=== PATIENT | female | born 1965 | race African-American/Black ===

== ENCOUNTER 2018-01-18 10:34 | Inpatient (IN) | payer OTHER ==
[2018-01-17 08:24] VITALS: BMI 37.4
[2018-01-18] MEDS ORDERED: MIDAZOLAM HCL 2 MG/2 ML SINGLE DOSE VIAL ONE (12:53)
[2018-01-18] MEDS ORDERED: ONDANSETRON 4 MG/2 ML VIAL ONE ×3 (13:01→17:02)
[2018-01-18] MEDS ORDERED: DEXAMETHASONE SOD PHOSPHATE 4 MG/1 ML VIAL ONE ×2 (13:01→15:16)
[2018-01-18] MEDS ORDERED: LIDOCAINE HCL/PF 2% SDV 5ML VIAL ONE (13:01)
[2018-01-18] MEDS ORDERED: fentaNYL CITRATE 250 MCG/5 ML VIAL ONE (13:03)
[2018-01-18] MEDS ORDERED: PROPOFOL 20 ML ONE ×2 (13:04→13:10)
[2018-01-18] MEDS ORDERED: BUPIVACAINE HCL/PF 0.5% (5MG/ML) 10 ML VIAL ONE (13:05)
[2018-01-18] MEDS ORDERED: ROCURONIUM BROMIDE 50 MG/5 ML VIAL ONE ×2 (13:05)
[2018-01-18] MEDS ORDERED: ceFAZolin SODIUM 1 GM VIAL ONE (13:06)
[2018-01-18] MEDS ORDERED: ceFAZolin SODIUM 1 GM VIAL IVPB ONE (13:08)
[2018-01-18] MEDS ORDERED: BUPIVACAINE HCL/PF (5 MG/ML) 30 ML VIAL IJ ONE (13:19)
--- NOTE | 2018-01-18 13:19 | HP ---
DATE OF ADMISSION: 01/18/2018 CHIEF COMPLAINT: Morbid obesity. HISTORY OF PRESENT ILLNESS: Patient is a 52-year-old woman with a history of morbid obesity for many years despite multiple attempts at dietary weight loss. She received nutrition, psychological, pulmonary, and medical clearance prior to being admitted for elective sleeve gastrectomy surgery. PAST MEDICAL HISTORY: Significant for diabetes, hypertension, asthma, and GERD. PAST SURGICAL HISTORY: Significant for right lung resection. MEDICATIONS: Include metformin, Lantus, and albuterol inhalers. ALLERGIES: The patient has no known allergies. REVIEW OF SYMPTOMS: General: Within normal limits. Cardiovascular: Within normal limits. Respiratory: No dyspnea noted. Musculoskeletal: Within normal limits. Neurologic: Within normal limits. PHYSICAL EXAMINATION: General: A 52-year-old woman, morbidly obese, awake and alert, in no acute distress. HEENT: No masses palpated. Lungs: Clear breath sounds bilaterally. Heart: Regular sinus rhythm. Abdomen: Positive for obesity. Soft and nontender on palpation. Extremities: Within normal limits. IMPRESSION: Morbid obesity. PLAN: Take the patient to the OR for an elective laparoscopic vertical sleeve gastrectomy. Luana [id number]
--- NOTE | 2018-01-18 15:52 | OP ---
Operative Note - Note: Operative Date: 01/18/18 Pre-Operative Diagnosis: Morbid Obesity. Diabetes Mellitus. Hypertension. Asthma. Elevated LFT Operation: Laparoscopic Vertical Sleeve Gastrectomy. Wedge Biopsy of Left lobe of liver. Diagnostic Laparoscopy Findings: Greater curve sleeve gastrectomy performed with #[address] enlarged left lobe of liver wedge biopsy performed Post-Operative Diagnosis: Same as Pre-op (Hepatomegaly) Surgeon: Cabrera Cabrera Electronics Technician: Lorene Metzger Anesthesia: General Specimens Removed: Greater curve of stomach. Wedge biopsy of left lobe of liver Estimated Blood Loss (mls): 50 Operative Report Dictated: Yes
[2018-01-18] MEDS ORDERED: ACETAMINOPHEN 325 MG TABLET (FP) PO PRN (16:04)
[2018-01-18] MEDS ORDERED: oxyCODONE HCL 5 MG TABLET PO PRN (16:04)
[2018-01-18] MEDS ORDERED: METOCLOPRAMIDE HCL INJECTION 10 MG/2 ML VIAL ONE (16:21)
--- NOTE | 2018-01-18 16:25 | SURG ---
Surgery Cat Scanner Operator Note Cat Scanner Operator: Lorene Metzger PA-C Date of Service: 01/18/18 Diagnosis: Morbid Obesity. Diabetes Mellitus. Hypertension. Asthma. Elevated LFT Procedure: Laparoscopic Vertical Sleeve Gastrectomy. Wedge Biopsy of Left lobe of liver. Diagnostic Laparoscopy I was present for the entirety of the operative procedure. For further detail, please refer to operative report. Visit type - Case Type Case Type: Scheduled - Emergency Emergency Visit: No - New patient This patient is new to me today: Yes Date on this admission: 01/18/18
[2018-01-18] MEDS: METOCLOPRAMIDE HCL INJECTION 10 MG/2 ML VIAL IVPUSH SCH ×2 (16:35→21:32)
[2018-01-18] MEDS ORDERED: METOPROLOL TARTRATE 5 MG/5 ML VIAL ONE (16:44)
[2018-01-18] MEDS: SODIUM CHLORIDE 1,000 ML IV SCH (17:00)
[2018-01-18] MEDS: ONDANSETRON 4 MG/2 ML VIAL IVPUSH PRN (17:00)
[2018-01-18 17:01] LABS: HEMATOCRIT 39.8 % (32.4-45.2); HEMOGLOBIN 13.6 GM/dL (10.7-15.3); MCH 30.4 pg (25.7-33.7); MCHC 34.2 g/dl (32.0-36.0); MEAN CELL VOLUME 88.9 fl (80-96); MEAN PLT VOLUME 8.3 fl (7.5-11.1); PLATELET COUNT 333 K/MM3 (134-434); RBC 4.48 M/mm3 (3.60-5.2); RDW 13.3 % (11.6-15.6); WHITE BLOOD COUNT 16.7 K/mm3 (4.0-10.0)
--- NOTE | 2018-01-18 17:25 | OP ---
DATE OF OPERATION: 01/18/2018 PREOPERATIVE DIAGNOSIS: 1. Morbid obesity. 2. Diabetes mellitus. 3. Hypertension. 4. Asthma. 5. Elevated liver function tests. POSTOPERATIVE DIAGNOSIS: 1. Morbid obesity. 2. Diabetes mellitus. 3. Hypertension. 4. Asthma. 5. Elevated liver function tests. 6. Hepatomegaly. PROCEDURE PERFORMED: 1. Laparoscopic vertical sleeve gastrectomy. 2. Wedge biopsy of the left lobe of the liver. 3. Diagnostic laparoscopy. OPERATING SURGEON: Cabrera Cabrera M.D. RECREATIONAL RESORT MANAGER SURGEON: Fatoumata Duncan ANESTHESIA: General. OPERATIVE PROCEDURE: The patient was brought into the operating room, placed on the OR table in the supine position. All precautions were taken initially including padding for the back and the feet, and Venodyne boots were placed on both lower extremities. At that point, the abdomen was prepped and draped in the usual manner. A Veress needle was placed in the left upper quadrant, and a pneumoperitoneum was established. A number 12 bladeless trocar was placed in the left upper quadrant through the trocar, laparoscopic camera was placed. Under direct vision, a number 15 bladeless trocar was placed in the midline in the supraumbilical position, and this was followed by a number 5 bladeless trocar in the right upper quadrant and number 5 bladeless trocar below the left costal margin. At this point a Faustino liver retractor was then placed in the epigastrium to retract the left lobe of the liver. The left lobe was noted to be extremely enlarged and was able to extend inferiorly well past the stomach. Because of the size of the liver and also because of elevated liver function test preoperatively, it was decided that a wedge liver biopsy would be performed. The Ligasure was used to dissect a triangular shaped portion of the liver off the inferior edge of the liver. When this was completed, it was sent off the field as specimen to pathology. The parenchyma had very minor oozing, and that was easily controlled with the Ligasure also. At this point, the patient was then placed in 20-degree reverse Trendelenburg position by anesthesia. The pylorus was noted on the distal stomach and 6 cm were measured proximally from there on the stomach. Here, the operating surgeon lifted the greater curvature of the stomach toward the anterior abdominal wall, as the city carrier assistant surgeon retracted the gastrocolic ligament inferiorly. The Ligasure device now used to dissect the gastrocolic ligament off the stomach until the lesser sac was entered. Care was taken during this part to be certain that the lesser sac was entered without any injury to underlying structures. These structures included the transverse colon and also the pancreas. The pancreas was in full view throughout; the transverse colon however was difficult to see but care was taken. Once the lesser sac was entered, the dissection continued along the greater curve, as the short gastric vessels were dissected off the stomach wall. This continued until the final short gastric vessel between the superior pole of the spleen and the proximal fundus was divided. Attention was now directed back to the distal part of the stomach by the antrum where the dissection began. Here, there was some omentum on the greater curve of the stomach, and it was carefully dissected off the stomach with the Ligasure and dissected. At this point, anesthesia advanced number 36 bougie along the lesser curve all the way to the antrum as it swept towards the pylorus. As the operating surgeon held the bougie along the lesser curve, a series of sadiq were performed with the first two being black load sadiq 6 cm in length along the bougie. This was followed by a series of purple load sadiq also 6 cm in length along the bougie, until the final sadiq were fired in left upper quadrant. The greater curve was now completely detached from the lesser curve. It should be noted that prior to firing each staple, both the anterior and posterior castañeda were checked and were intact, and then the area of the esophagogastric junction approximately remained on the anterior and posterior surfaces. At this point, saline was placed around the staple line, as anesthesia injected air into the bougie. The bougie blew up and the greater curvature distended, but no signs of any air leaks were noted, and no obstruction. At this point, attention was directed to the staple line, which appeared to be solid. There was one area of minor oozing in the upper portion of the staple line by esophagogastric junction and this was controlled with a [id number] with the Endo Stitch. Careful evaluation on the distal stomach where the staple line began showed that again the structure behind the stomach the transverse colon and the pancreas were completely away from the dissected areas. At this point, the resected greater curve was moved from the number 15 trocar site and handed off the field as specimen to pathology. Under direct vision, the number 15 trocar site was closed with endo closure device to prevent internal hernia and prevent bleeding. Under direct vision, all trocars were removed, and the pneumoperitoneum was released. All trocar sites had received 0.25% Marcaine, were closed with 4-0 Biosyn subcuticular fashion. Dressings were applied, patient awoken from anesthesia and transferred out of the operation room to the recovery room in stable condition. Anesthesia in the case was general, surgeon Dr. Cabrera, the city carrier assistant was Lorene Metzger physician city carrier assistant, expected blood loss was 50 mL, patient transferred to the recovery room in stable condition. Luana [id number]
[2018-01-18] MEDS ORDERED: METOPROLOL TARTRATE 5 MG/5 ML VIAL IVPUSH ONE (17:34)
[2018-01-18] MEDS ORDERED: PROMETHAZINE HCL 25 MG/1 ML VIAL ONE (17:34)
[2018-01-18] MEDS ORDERED: PROMETHAZINE HCL 25 MG/1 ML VIAL IVPUSH ONE (17:35)
[2018-01-18] MEDS ORDERED: hydrALAZINE HCL 20 MG/ML VIAL IVPUSH ONE (17:45)
[2018-01-18 17:53] LABS: ALBUMIN 3.8 g/dl (3.4-5.0); ANION GAP 9 (8-16); BLOOD UREA NITROGEN 17 mg/dL (7-18); CALCIUM 8.8 mg/dL (8.5-10.1); CHLORIDE 104 mmol/L (98-107); CO2 26 mmol/L (21-32); GLUCOSE,RANDOM 283 mg/dL (74-106); POTASSIUM 4.8 mmol/L (3.5-5.1); SGOT/AST 102 U/L (15-37); SGPT/ALT 103 U/L (12-78); SODIUM 139 mmol/L (136-145)
[2018-01-18 17:55] LABS: ALK PHOS 115 U/L (45-117); BILIRUBIN,TOTAL 0.3 mg/dL (0.2-1.0); TOT PROT 6.9 g/dl (6.4-8.2)
--- NOTE | 2018-01-18 19:06 | CONSULT ---
Consultation: REQUESTING PROVIDER: Rick CONSULT REQUEST: We have been asked to medically evaluate this patient for (ICU monitoring). HISTORY OF PRESENT ILLNESS: 52 yo female with PMH DM, morbid obesity, HTN, Asthma, and GERD, admitted to the ICU s/p Sleeve gastrectomy with EGD and liver biopsy, post-op day 0. Currently complaining of nausea, with one episode of vomiting. Denies: headache , fevers, chills, cough, SOB REVIEW OF SYSTEMS: CONSTITUTIONAL: Absent: fever, chills, diaphoresis, generalized weakness, malaise, loss of appetite, weight change HEENT: Absent: rhinorrhea, nasal congestion, throat pain, throat swelling, difficulty swallowing, mouth swelling, ear pain, eye pain, visual changes CARDIOVASCULAR: Absent: chest pain, syncope, palpitations, irregular heart rate, lightheadedness , peripheral edema RESPIRATORY: Absent: cough, shortness of breath, dyspnea with exertion, orthopnea, wheezing, stridor, hemoptysis GASTROINTESTINAL: abdominal pain, nausea, vomiting, Absent: abdominal distension, diarrhea, constipation, melena, hematochezia GENITOURINARY: Absent: dysuria, frequency, urgency, hesitancy, hematuria, flank pain, genital pain MUSCULOSKELETAL: Absent: myalgia, arthralgia, joint swelling, back pain, neck pain SKIN: Absent: rash, itching, pallor HEMATOLOGIC/IMMUNOLOGIC: Absent: easy bleeding, easy bruising, lymphadenopathy, frequent infections ENDOCRINE: Absent: unexplained weight gain, unexplained weight loss, heat intolerance, cold intolerance NEUROLOGIC: Absent: headache, focal weakness or paresthesias, dizziness, unsteady gait, seizure, mental status changes, bladder or bowel incontinence PSYCHIATRIC: Absent: anxiety, depression, suicidal or homicidal ideation, hallucinations. PHYSICAL EXAMINATION Vital Signs - 24 hr 01/18/18 01/18/18 01/18/18 11:16 11:17 16:00 Temperature 98.0 F Pulse Rate 88 83 Respiratory 20 10 L Rate Blood Pressure 143/87 168/108 O2 Sat by Pulse 98 94 L Oximetry (%) 01/18/18 01/18/18 01/18/18 16:15 16:30 16:45 Temperature Pulse Rate 85 84 79 Respiratory 22 14 11 L Rate Blood Pressure 171/102 175/109 185/116 O2 Sat by Pulse 99 100 99 Oximetry (%) 01/18/18 01/18/1801/18/18 17:00 17:15 17:30 Temperature Pulse Rate 78 77 84 Respiratory 15 17 17 Rate Blood Pressure 175/117 164/84 161/115 O2 Sat by Pulse 100 100 99 Oximetry (%) 01/18/18 01/18/18 01/18/18 17:45 18:00 18:21 Temperature 98.0 F 97.7 F Pulse Rate 88 96 H 90 Respiratory 20 18 Rate Blood Pressure 161/101 159/96 160/91 O2 Sat by Pulse 99 100 Oximetry (%) 01/18/18 18:24 Temperature Pulse Rate Respiratory Rate Blood Pressure O2 Sat by Pulse 98 Oximetry (%) GENERAL: Awake, alert, and fully oriented, in no acute distress. HEAD: Normal with no signs of trauma. EYES: Pupils equal, round and reactive to light, extraocular movements intact, sclera anicteric, conjunctiva clear. No lid lag. EARS, NOSE, THROAT: Ears normal, nares patent, oropharynx clear without exudates. Moist mucous membranes. NECK: supple without lymphadenopathy, JVD, or masses. LUNGS: Breath sounds equal but decreased, clear to auscultation bilaterally. No wheezes, and no crackles. No accessory muscle use. HEART: Regular rate and rhythm, normal S1 and S2 without murmur, rub or gallop. ABDOMEN: Morbidly obese, Soft, mildly tender to palpation, not distended, hypoactive bowel sounds, no guarding, no rebound, no masses. MUSCULOSKELETAL: Normal range of motion at all joints. No bony deformities or tenderness. No CVA tenderness. UPPER EXTREMITIES: 2+ pulses, warm, well-perfused. No cyanosis. No clubbing. No peripheral edema. LOWER EXTREMITIES: 2+ pulses, warm, well-perfused. No calf tenderness. No peripheral edema. NEUROLOGICAL: Cranial nerves II-XII grossly intact. Normal speech. Gait not observed PSYCHIATRIC: Cooperative. Good eye contact. Appropriate mood and affect. SKIN: Warm, dry, normal turgor, no rashes or lesions noted. Laboratory Results - last 24 hr 01/18/18 01/18/18 01/18/18 11:13 11:22 16:30 WBC 16.7 H RBC 4.48 Hgb 13.6 Hct 39.8 MCV 88.9 MCH 30.4 MCHC 34.2 RDW 13.3 Plt Count 333 MPV 8.3 Sodium Potassium Chloride Carbon Dioxide Anion Gap BUN Creatinine Creat Clearance w eGFR POC Glucometer 161 Random Glucose Calcium Total Bilirubin AST ALT Alkaline Phosphatase Total Protein Albumin Blood Type O POSITIVE 01/18/18 16:30 WBC RBC Hgb Hct MCV MCH MCHC RDW Plt Count MPV Sodium 139 Potassium 4.8 Chloride 104 Carbon Dioxide 26 Anion Gap 9 BUN 17 Creatinine 1.0 Creat Clearance w eGFR 58.22 POC Glucometer Random Glucose 283 H Calcium 8.8 Total Bilirubin 0.3 AST 102 H ALT 103 H Alkaline Phosphatase 115 Total Protein 6.9 Albumin 3.8 Blood Type Active Medications Generic Name Dose Route Start Last Admin Trade Name Freq PRN Reason Stop Dose Admin Acetaminophen 325 mg 01/18/18 16:04 Tylenol - PO 01/21/18 16:03 Q4H PRN PAIN 1-5 Enoxaparin Sodium 40 mg 01/18/18 22:00 Lovenox - SQ BID MONICA Famotidine/Sodium Chloride 20 mg in 50 mls @ 100 mls/hr 01/18/18 22:00 Pepcid 20 Mg Premixed Ivpb - IVPB BID MONICA Sodium Chloride 1,000 mls @ 150 mls/hr 01/18/18 15:45 01/18/18 17:00 Normal Saline - IV 150 mls ASDIR MONICA Administration Metoclopramide HCl 10 mg 01/18/18 15:45 01/18/18 16:35 Reglan Injection - IVPUSH 10 mg Q6H MONICA Administration Ondansetron HCl 4 mg 01/18/18 15:39 01/18/18 17:00 Zofran Injection IVPUSH 4 mg Q4H PRN Administration NAUSEA AND/OR VOMITING Oxycodone HCl 5 mg 01/18/18 16:04 Roxicodone - PO Q4H PRN PAIN 1-5 ASSESSMENT/PLAN: 52 yo female admitted to the ICU for monitoring s/p sleeve gastrectomy with EGD and liver biopsy. post-op day 0 Neuro -No known neuro issues at this time Cardio -HTN Lopressor 5mg and Hydralazine 10mg given in PACU for htn will restart home med Losartan-HCTZ 100-25 PO in AM Respiratory -No known respiratory issues -CXR in AM -Incentive spirometry to prevent post op atelectasis/pneumonia GI -s/p sleeve gastrectomy and liver biopsy NPO Zofran and Reglan for nausea PRN Acute transaminitis most likely due to Liver biopsy, will follow CMP -GERD Famotidine 20 mg IVPB BID Renal -No known renal issues at this time Follow BMP Endocrine -IDDM BGM Insulin sliding scale for glycemic control between 140-180 will adjust as necessary Post-op -Pain control Oxycodone 5 mg PO Q4 PRN Tylenol 325 mg PO Q4 PRN -Incentive spirometry -no mo -PT for early ambulation DVT Prophylaxis -Lovenox 40 SQ BID -SCDs FEN -Fluids: NS @ 150 cc/hr -Electrolytes: no electrolyte abnormalities, CMP in AM -Nutrition: NPO for now, will advance as per surgery Disposition Monitor in the ICU Problem List - Problems (1) Morbid obesity Code(s): E66.01 - MORBID (SEVERE) OBESITY DUE TO EXCESS CALORIES (2) S/P laparoscopic sleeve gastrectomy Code(s): Z98.84 - BARIATRIC SURGERY STATUS (3) HTN (hypertension) Code(s): I10 - ESSENTIAL (PRIMARY) HYPERTENSION (4) IDDM (insulin dependent diabetes mellitus) Code(s): E11.9 - TYPE 2 DIABETES MELLITUS WITHOUT COMPLICATIONS; Z79.4 - PORTABLE SAWYER (CURRENT) USE OF INSULIN (5) GERD (gastroesophageal reflux disease) Code(s): K21.9 - GASTRO-ESOPHAGEAL REFLUX DISEASE WITHOUT ESOPHAGITIS Visit type - Emergency Visit Emergency Visit: No - New Patient This patient is new to me today: Yes Date on this admission: 01/18/18 - Critical Care Critical Care patient: Yes Total Critical Care Time (in minutes): 45 Critical Care Statement: The care of this patient involved high complexity decision making to prevent further life threatening deterioration of the patient 's condition and/or to evaluate & treat vital organ system(s) failure or risk of failure.
[2018-01-18] MEDS: FAMOTIDINE 20 MG/50 ML IVPB 20 MG/50 ML MG IVPB SCH (21:34)
[2018-01-18] MEDS: ENOXAPARIN NA (PORCINE) 40 MG/0.4 ML DISP.SYRIN SQ SCH (21:34)
[2018-01-18] MEDS: INSULIN SLIDING SCALE (NOVOLOG) 1 VIAL SQ SCH (21:36)
[2018-01-19] MEDS: METOCLOPRAMIDE HCL INJECTION 10 MG/2 ML VIAL IVPUSH SCH ×4 (04:30→21:58)
[2018-01-19 06:10] LABS: HEMATOCRIT 35.2 % (32.4-45.2); HEMOGLOBIN 12.4 GM/dL (10.7-15.3); MCH 30.9 pg (25.7-33.7); MCHC 35.3 g/dl (32.0-36.0); MEAN CELL VOLUME 87.5 fl (80-96); PLATELET COUNT 271 K/MM3 (134-434); RBC 4.03 M/mm3 (3.60-5.2); WHITE BLOOD COUNT 13.2 K/mm3 (4.0-10.0)
[2018-01-19] MEDS: INSULIN SLIDING SCALE (NOVOLOG) 1 VIAL SQ SCH ×4 (06:15→22:26)
[2018-01-19 06:26] LABS: ALBUMIN 3.6 g/dl (3.4-5.0); ALK PHOS 97 U/L (45-117); ANION GAP 5 (8-16); BILIRUBIN,TOTAL 0.4 mg/dL (0.2-1.0); BLOOD UREA NITROGEN 13 mg/dL (7-18); CALCIUM 8.7 mg/dL (8.5-10.1); CHLORIDE 106 mmol/L (98-107); CO2 27 mmol/L (21-32); CREATININE 0.9 mg/dL (0.55-1.02); GLUCOSE,RANDOM 182 mg/dL (74-106); MAGNESIUM 1.9 mg/dL (1.8-2.4); POTASSIUM 3.9 mmol/L (3.5-5.1); SGOT/AST 106 U/L (15-37); SGPT/ALT 105 U/L (12-78); SODIUM 138 mmol/L (136-145); TOT PROT 6.8 g/dl (6.4-8.2)
[2018-01-19] MEDS: ONDANSETRON 4 MG/2 ML VIAL IVPUSH PRN ×2 (06:58→15:42)
[2018-01-19] MEDS ORDERED: PANTOPRAZOLE SODIUM 40 MG VIAL IVPUSH ONE (08:50)
--- NOTE | 2018-01-19 09:10 | PN ---
Progress Note (short form) - Note Progress Note: Post op day#1.S/P Laproscopic gastric sleeve placement under Ga uneventful.P 99, BP 156/89 and [id number]% on O2 2l NC.Patient stable.No any anesthesia related problem.Ptient Dc from the anesthesia care.
[2018-01-19] MEDS ORDERED: PANTOPRAZOLE SODIUM 40 MG VIAL IVPUSH SCH (10:00)
--- NOTE | 2018-01-19 10:18 | PN ---
Teaching Attending Note Name of Resident: Ayad Byrd ATTENDING PHYSICIAN STATEMENT I saw and evaluated the patient. I reviewed the resident's note and discussed the case with the resident. I agree with the resident's findings and plan as documented. SUBJECTIVE: Pt seen and examined in the ICU. Some epigastric discomfort and nausea. + flatus. No shortness of breath or chest pain. OBJECTIVE: Vital Signs Period Temp Pulse Resp BP Sys/[place] Pulse Ox Last 24 Hr 97.7 F-98.7 F 77-97 10-22 132-185/76-117 94-100 Intake & Output 01/16/18 01/17/18 01/18/18 01/19/18 23:59 23:59 23:59 23:59 Intake Total 2150 1500 Output Total 1350 1500 Balance 800 0 Weight 89.811 kg 89.403 kg Gen: NAD at rest Heart: RRR Lung: decreased breath sounds at the bases Abd: soft, dressings intact Ext: no edema CBC, BMP 01/19/18 05:30 01/19/18 05:30 Active Medications Acetaminophen (Tylenol -) 325 mg PO Q4H PRN PRN Reason: PAIN 1-5 Stop: 01/21/18 16:03 Enoxaparin Sodium (Lovenox -) 40 mg SQ BID [facility] Last Admin: 01/18/18 21:34 Dose: 40 mg HCTZ/Losartan Potassium (Hyzaar -) 2 tab PO DAILY [facility] Famotidine/Sodium Chloride (Pepcid 20 Mg Premixed Ivpb -) 20 mg in 50 mls @ 100 mls/hr IVPB BID [facility] Last Admin: 01/18/18 21:34 Dose: 100 mls/hr Sodium Chloride (Normal Saline -) 1,000 mls @ 150 mls/hr IV ASDIR [facility] Last Admin: 01/18/18 17:00 Dose: 150 mls Insulin Aspart (Novolog Vial Sliding Scale -) 1 vial SQ ACHS [facility]; Protocol Last Admin: 01/19/18 06:15 Dose: 2 units Metoclopramide HCl (Reglan Injection -) 10 mg IVPUSH Q6H [facility] Last Admin: 01/19/18 04:30 Dose: 10 mg Ondansetron HCl (Zofran Injection) 4 mg IVPUSH Q4H PRN PRN Reason: NAUSEA AND/OR VOMITING Last Admin: 01/19/18 06:58 Dose: 4 mg Oxycodone HCl (Roxicodone -) 5 mg PO Q4H PRN PRN Reason: PAIN 1-5 Last Admin: 01/19/18 05:36 Dose: 5 mg ASSESSMENT AND PLAN: Morbid Obesity s/p laparoscopic vertical sleeve gastrectomy/liver wedge biopsy HTN DM Asthma - f/u pathology - pain control - antiemetics - incentive spirometry - IVF - for upper GI series - DVT prophylaxis - can transfer to floor when ok with surgery
[2018-01-19] MEDS: ENOXAPARIN NA (PORCINE) 40 MG/0.4 ML DISP.SYRIN SQ SCH ×2 (10:21→21:59)
[2018-01-19] MEDS: FAMOTIDINE 20 MG/50 ML IVPB 20 MG/50 ML MG IVPB SCH ×2 (10:21→21:59)
[2018-01-19] MEDS: LOSARTAN 50MG/HCTZ 12.5MG 1 TAB (FP) PO SCH (10:31)
--- NOTE | 2018-01-19 10:34 | PN ---
Physical Exam: SUBJECTIVE: Patient seen and examined at bedside. C/o nausea but no vomiting and pain at incision site near sternum. No CP, SOB, fevers, chills. Passing flatus. OBJECTIVE: Vital Signs Temperature 98.7 F 01/19/18 06:00 Pulse Rate 95 H 01/19/18 06:00 Respiratory Rate 21 01/19/18 06:00 Blood Pressure 135/76 01/19/18 06:00 O2 Sat by Pulse Oximetry (%) 98 01/18/18 21:00 GENERAL: The patient is awake, alert, and fully oriented, in no acute distress. EYES: extraocular movements intact ENT: Ears normal, nares patent LUNGS: Breath sounds equal, clear to auscultation bilaterally HEART: Regular rate and rhythm, S1, S2 ABDOMEN: Soft, nondistended, normoactive bowel sounds, mild tenderness near incision sites. EXTREMITIES: warm, well-perfused NEUROLOGICAL: Cranial nerves II through XII grossly intact. Normal speech, gait not observed. PSYCH: Normal mood, normal affect. SKIN: Warm, dry, incisions from recent bariatric surgery on abd noted, clean, dry, no drainage at sites. Laboratory Results - last 24 hr 01/18/18 01/18/18 01/18/18 11:13 11:22 16:30 WBC 16.7 H RBC 4.48 Hgb 13.6 Hct 39.8 MCV 88.9 MCH 30.4 MCHC 34.2 RDW 13.3 Plt Count 333 MPV 8.3 Sodium Potassium Chloride Carbon Dioxide Anion Gap BUN Creatinine Creat Clearance w eGFR POC Glucometer 161 Random Glucose Calcium Phosphorus Magnesium Total Bilirubin AST ALT Alkaline Phosphatase Total Protein Albumin Blood Type O POSITIVE 01/18/18 01/19/18 01/19/18 16:30 05:30 05:30 WBC 13.2 H RBC 4.03 Hgb 12.4 Hct 35.2 MCV 87.5 MCH 30.9 MCHC 35.3 RDW 13.0 Plt Count 271 MPV 8.0 Sodium 139 138 Potassium 4.8 3.9 Chloride 104 106 Carbon Dioxide 26 27 Anion Gap 9 5 L BUN 17 13 Creatinine 1.0 0.9 Creat Clearance w eGFR 58.22 > 60 POC Glucometer Random Glucose 283 H 182 H Calcium 8.8 8.7 Phosphorus 4.0 Magnesium 1.9 Total Bilirubin 0.3 0.4 AST 102 H 106 H ALT 103 H 105 H Alkaline Phosphatase 115 97 D Total Protein 6.9 6.8 Albumin 3.8 3.6 Blood Type Active Medications Generic Name Dose Route Start Last Admin Trade Name Jasmyn PRN Reason Stop Dose Admin Acetaminophen 325 mg 01/18/18 16:04 Tylenol - PO 01/21/18 16:03 Q4H PRN PAIN 1-5 Enoxaparin Sodium 40 mg 01/18/18 22:00 01/18/18 21:34 Lovenox - SQ 40 mg BID MONICA Administration HCTZ/Losartan Potassium 2 tab 01/19/18 10:00 Hyzaar - PO DAILY [facility] Famotidine/Sodium Chloride 20 mg in 50 mls @ 100 mls/hr 01/18/18 22:00 21:34 Pepcid 20 Mg Premixed Ivpb - IVPB 100 mls/hr BID [facility] Administration Sodium Chloride 1,000 mls @ 150 mls/hr 01/18/18 15:45 01/18/18 17:00 Normal Saline - IV 150 mls ASDIR MONICA Administration Insulin Aspart 1 vial 01/18/18 22:00 01/19/18 06:15 Novolog Vial Sliding Scale - SQ 2 units ACHS [facility] Administration Protocol Metoclopramide HCl 10 mg 01/18/18 15:45 01/19/18 04:30 Reglan Injection - IVPUSH 10 mg Q6H MONICA Administration Ondansetron HCl 4 mg 01/18/18 15:39 01/19/18 06:58 Zofran Injection IVPUSH 4 mg Q4H PRN Administration NAUSEA AND/OR VOMITING Oxycodone HCl 5 mg 01/18/18 16:04 01/19/18 05:36 Roxicodone - PO 5 mg Q4H PRN Administration PAIN 1-5 ASSESSMENT/PLAN: 52 yo female with PMH DM, morbid obesity, HTN, Asthma, and GERD, admitted to the ICU s/p Sleeve gastrectomy. -Neuro -AAOx3 -GI -Morbid obesity -s/p sleeve gastrectomy. POD 1 -Pain control with oxy 5 mg po q4h prn pain 1-5 morphine 2 mg iv q4h prn pain 6-10 -GI series ordered -Nausea -Reglan 10 mg IV q6h/Zofran 4 mg IV q4h PRN -GERD -Pepcid 20 mg IV bid -CV -HTN -Hyzaar -Endo -DM -ISS, BGMs -DVT ppx -Lovenox -FEN -NS @ 150 ml/hr -monitor electrolytes -NPO except for contrast for GI series -Dispo: will continue to monitor. If GI series negative and cleared with surgeon can be transferred to M/S. Visit type - Emergency Visit Emergency Visit: Yes ED Registration Date: 01/18/18 Care time: The patient presented to the Emergency Department on the above date and was hospitalized for further evaluation of their emergent condition. - New Patient This patient is new to me today: Yes Date on this admission: 01/19/18 - Critical Care Critical Care patient: Yes Total Critical Care Time (in minutes): 40 Critical Care Statement: The care of this patient involved high complexity decision making to prevent further life threatening deterioration of the patient 's condition and/or to evaluate & treat vital organ system(s) failure or risk of failure.
[2018-01-19] MEDS: SODIUM CHLORIDE 1,000 ML IV SCH ×3 (15:46→21:00)
[2018-01-19] MEDS ORDERED: oxyCODONE HCL 5 MG TABLET PO PRN (17:20)
[2018-01-19] MEDS ORDERED: ACETAMINOPHEN 325 MG TABLET (FP) PO PRN (17:20)
--- NOTE | 2018-01-19 17:30 | PN ---
Progress Note (short form) - Note Progress Note: POD#1 Afebrile; VSS P-90-96 Pt doing well No N/V Tolerating PO clear liquids- 2 oz PO TID P/E- Abd- all trocar sites clean, dry WBC-13.2 H/H-12.4/35.2 UGI- no leak, no obstruction P- PO clear liquids- 2 oz PO TID Cont DVT prophylaxis (SCD, Lovenox) Encourage incentive spirometer, OOB
[2018-01-19] MEDS: MORPHINE SULFATE 2 MG/ML VIAL IVPUSH PRN (19:51)
[2018-01-20] MEDS: MORPHINE SULFATE 2 MG/ML VIAL IVPUSH PRN (01:59)
[2018-01-20] MEDS: METOCLOPRAMIDE HCL INJECTION 10 MG/2 ML VIAL IVPUSH SCH ×2 (05:20→11:17)
[2018-01-20 05:23] LABS: BASO % 0.5 % (0-2.0); HEMATOCRIT 25.8 % (32.4-45.2); HEMOGLOBIN 8.8 GM/dL (10.7-15.3); LYMPH % 12.8 % (8-40); MCH 30.3 pg (25.7-33.7); MCHC 33.9 g/dl (32.0-36.0); MEAN CELL VOLUME 89.3 fl (80-96); MEAN PLT VOLUME 8.2 fl (7.5-11.1); NEUT % 80.7 % (42.8-82.8); PLATELET COUNT 261 K/MM3 (134-434); RBC 2.89 M/mm3 (3.60-5.2); RDW 13.3 % (11.6-15.6); WHITE BLOOD COUNT 14.4 K/mm3 (4.0-10.0)
[2018-01-20] MEDS: ONDANSETRON 4 MG/2 ML VIAL IVPUSH PRN (05:23)
[2018-01-20] MEDS: INSULIN SLIDING SCALE (NOVOLOG) 1 VIAL SQ SCH ×3 (06:10→22:04)
[2018-01-20 06:11] LABS: ALBUMIN 2.8 g/dl (3.4-5.0); ALK PHOS 68 U/L (45-117); ANION GAP 9 (8-16); BILIRUBIN,TOTAL 0.7 mg/dL (0.2-1.0); BLOOD UREA NITROGEN 14 mg/dL (7-18); CALCIUM 7.9 mg/dL (8.5-10.1); CHLORIDE 106 mmol/L (98-107); CO2 25 mmol/L (21-32); CREATININE 1.1 mg/dL (0.55-1.02); GLUCOSE,RANDOM 249 mg/dL (74-106); MAGNESIUM 2.1 mg/dL (1.8-2.4); PHOSPHOROUS 3.2 mg/dL (2.5-4.9); POTASSIUM 4.3 mmol/L (3.5-5.1); SGOT/AST 90 U/L (15-37); SGPT/ALT 110 U/L (12-78); SODIUM 140 mmol/L (136-145); TOT PROT 5.3 g/dl (6.4-8.2)
[2018-01-20] MEDS ORDERED: SODIUM CHLORIDE 0.9% 500 ML INFUS.BAG IV ONE (06:24)
--- NOTE | 2018-01-20 08:13 | PN ---
Physical Exam: SUBJECTIVE: POD#1 from sleeve gastrectomy. Pt this morning noted to be tachycardic, hypotensive, and diaphoretic with the feeling of lightheadedness. Pt had stat CBC drawn which showed a drop in Hgb. Currently pt is receiving 1UPRBC and is feeling slightly better, however endorses nausea and lightheadedness. OBJECTIVE: Vital Signs Period Temp Pulse Resp BP Sys/[place] Pulse Ox Last 24 Hr 97.8 F-98.9 F 93-123 15-20 80-157/51-87 98-99 GENERAL: awake, alert, and fully oriented, in mild distress, diaphoretic HEENT: NC/AT, EOMI, ASCENCION, [id number] mucosa NECK: No JVD LUNGS: CTA bilaterally, no wheezes, no crackles, no accessory muscle use. HEART: Tachycardic with regular rhythm, S1, S2 without murmur ABDOMEN: Soft, hypoactive BS, minimally tender, nondistended EXTREMITIES: 2+ DP pulses, warm, cap refill <2sec, no edema. PSYCH: Normal mood, normal affect. Anxious SKIN: Warm, dry, no rashes or lesions noted Laboratory Results - last 24 hr 01/18/18 01/19/18 01/19/18 11:13 05:53 13:06 WBC RBC Hgb Hct MCV MCH MCHC RDW Plt Count MPV Absolute Neuts (auto) Neutrophils % Lymphocytes % Monocytes % Eosinophils % Basophils % Nucleated RBC % Sodium Potassium Chloride Carbon Dioxide Anion Gap BUN Creatinine Creat Clearance w eGFR POC Glucometer [phone] Random Glucose Calcium Phosphorus Magnesium Total Bilirubin AST ALT Alkaline Phosphatase Total Protein Albumin Blood Type O POSITIVE Crossmatch See Detail 01/19/18 01/19/18 01/20/18 18:02 22:23 04:56 WBC RBC Hgb Hct MCV MCH MCHC RDW Plt Count MPV Absolute Neuts (auto) Neutrophils % Lymphocytes % Monocytes % Eosinophils % Basophils % Nucleated RBC % Sodium Potassium Chloride Carbon Dioxide Anion Gap BUN Creatinine Creat Clearance w eGFR POC Glucometer 210.32255 195.14539 283.53806 Random Glucose Calcium Phosphorus Magnesium Total Bilirubin AST ALT Alkaline Phosphatase Total Protein Albumin Blood Type Crossmatch 01/20/18 01/20/18 05:00 05:00 WBC 14.4 H RBC 2.89 L Hgb 8.8 L Hct 25.8 L D MCV 89.3 MCH 30.3 MCHC 33.9 RDW 13.3 Plt Count 261 MPV 8.2 Absolute Neuts (auto) 11.6 Neutrophils % 80.7 D Lymphocytes % 12.8 D Monocytes % 6.0 Eosinophils % 0.0 D Basophils % 0.5 Nucleated RBC % 0 Sodium 140 Potassium 4.3 Chloride 106 Carbon Dioxide 25 Anion Gap 9 BUN 14 Creatinine 1.1 H Creat Clearance w eGFR 52.16 POC Glucometer Random Glucose 249 H Calcium 7.9 L Phosphorus 3.2 Magnesium 2.1 Total Bilirubin 0.7 AST 90 H ALT 110 H Alkaline Phosphatase 68 D Total Protein 5.3 L Albumin 2.8 L Blood Type Crossmatch Active Medications Generic Name Dose Route Start Last Admin Trade Name Freq PRN Reason Stop Dose Admin Acetaminophen 325 mg 01/18/18 16:04 Tylenol - PO 01/21/18 16:03 Q4H PRN PAIN 1-5 Acetaminophen 325 mg 01/19/18 17:20 Tylenol - PO Q4H PRN HEADACHE Enoxaparin Sodium 40 mg 01/18/18 22:00 01/19/18 21:59 Lovenox - SQ 40 mg BID MONICA Administration HCTZ/Losartan Potassium 2 tab 01/19/18 10:00 01/19/18 10:31 Hyzaar - PO 2 tab DAILY [facility] Administration Famotidine/Sodium Chloride 20 mg in 50 mls @ 100 mls/hr 01/18/18 22:00 21:59 Pepcid 20 Mg Premixed Ivpb - IVPB 100 mls/hr BID MONICA Administration Sodium Chloride 1,000 mls @ 75 mls/hr 01/19/18 17:30 01/19/18 21:00 Normal Saline - IV 75 mls/hr ASDIR MONICA Administration Insulin Aspart 1 vial 01/18/18 22:00 01/20/18 06:10 Novolog Vial Sliding Scale - SQ 6 units ACHS MONICA Administration Protocol Metoclopramide HCl 10 mg 01/18/18 15:45 01/20/18 05:20 Reglan Injection - IVPUSH 10 mg Q6H MONICA Administration Morphine Sulfate 2 mg 01/19/18 10:47 01/20/18 01:59 Morphine Sulfate IVPUSH 2 mg Q4H PRN Administration PAIN LEVEL 6-10 Ondansetron HCl 4 mg 01/18/18 15:39 01/20/18 05:23 Zofran Injection IVPUSH 4 mg Q4H PRN Administration NAUSEA AND/OR VOMITING Oxycodone HCl 5 mg 01/18/18 16:04 01/19/18 05:36 Roxicodone - PO 5 mg Q4H PRN Administration PAIN 1-5 ASSESSMENT/PLAN: Neuro: Neurologically intact Respiratory: No acute distress Cardiac: HTN --Holding Hyzaar today for acute hypotensive episode; can restart if hemodynamics are stable GI: POD#1 Sleeve gastrectomy --Dr. Cabrera aware of episode this morning --CTAP noncontrast for visualization of any fluid collections noted --Transfuse 2U PRBC and draw CBC 1 hr after finish --Will likely need further transfusion support however if >4 will likely need surgery for localization --Monitor H/H --Bariatric diet as tolerated --Oxycodone 5mg q4h PRN pain 1-5 --Morphine 2mg IVP q4h PRN for pain 6-10 --Zofran 4mg q4h PRN for nausea --SCDs FEN: Fluids: NS@75cc/hr for hemodynamic support inbetween PRBC transfusions Electrolyte abnormalities: None today Nutrition: Bariatric phase 1 diet PPX: DVt - SCDs only GI - Famotidine 20mg IVPB BID Dispo: Cancel transfer and keep monitoring in ICU in lieu of transfusion requirements Case discussed with Dr. Gr and Dr. Rick Acosta, DO - IM PGY-2 Visit type - Emergency Visit Emergency Visit: No - New Patient This patient is new to me today: No - Critical Care Critical Care patient: Yes Total Critical Care Time (in minutes): 35 Critical Care Statement: The care of this patient involved high complexity decision making to prevent further life threatening deterioration of the patient 's condition and/or to evaluate & treat vital organ system(s) failure or risk of failure.
--- NOTE | 2018-01-20 09:42 | PN ---
Teaching Attending Note Name of Resident: Nils Acosta ATTENDING PHYSICIAN STATEMENT I saw and evaluated the patient. I reviewed the resident's note and discussed the case with the resident. I agree with the resident's findings and plan as documented. SUBJECTIVE: Pt seen and examined in the ICU. Episode of diaphoresis overnight with tachycardia. CT A/P showing some intraperitoneal fluid collection as well as fluid anterior to liver, official read pending. Pt with some anterior abdominal pain. OBJECTIVE: Vital Signs Period Temp Pulse Resp BP Sys/[place] Pulse Ox Last 24 Hr 97.8 F-98.9 F 93-123 15-20 80-157/51-87 98-99 Intake & Output 01/17/18 01/18/18 01/19/18 01/20/18 23:59 23:59 23:59 23:59 Intake Total 2150 1600 1450 Output Total 1350 1500 Balance 445 246 4349 Weight 89.811 kg 89.403 kg 90.038 kg Gen: pale Heart: tachycardic, regular Lung: decreased breath sounds at the bases Abd: soft, mild diffuse tenderness Ext: no edema CBC, BMP 01/20/18 05:00 01/20/18 05:00 Active Medications Acetaminophen (Tylenol -) 325 mg PO Q4H PRN PRN Reason: PAIN 1-5 Stop: 01/21/18 16:03 Acetaminophen (Tylenol -) 325 mg PO Q4H PRN PRN Reason: HEADACHE HCTZ/Losartan Potassium (Hyzaar -) 2 tab PO DAILY [facility] Last Admin: 01/19/18 10:31 Dose: 2 tab Famotidine/Sodium Chloride (Pepcid 20 Mg Premixed Ivpb -) 20 mg in 50 mls @ 100 mls/hr IVPB BID [facility] Last Admin: 01/19/18 21:59 Dose: 100 mls/hr Sodium Chloride (Normal Saline -) 1,000 mls @ 75 mls/hr IV ASDIR [facility] Last Admin: 01/19/18 21:00 Dose: 75 mls/hr Insulin Aspart (Novolog Vial Sliding Scale -) 1 vial SQ ACHS [facility]; Protocol Last Admin: 01/20/18 06:10 Dose: 6 units Metoclopramide HCl (Reglan Injection -) 10 mg IVPUSH Q6H [facility] Last Admin: 01/20/18 05:20 Dose: 10 mg Morphine Sulfate (Morphine Sulfate) 2 mg IVPUSH Q4H PRN PRN Reason: PAIN LEVEL 6-10 Last Admin: 01/20/18 01:59 Dose: 2 mg Ondansetron HCl (Zofran Injection) 4 mg IVPUSH Q4H PRN PRN Reason: NAUSEA AND/OR VOMITING Last Admin: 01/20/18 05:23 Dose: 4 mg Oxycodone HCl (Roxicodone -) 5 mg PO Q4H PRN PRN Reason: PAIN 1-5 Last Admin: 01/19/18 05:36 Dose: 5 mg ASSESSMENT AND PLAN: Morbid Obesity s/p laparoscopic vertical sleeve gastrectomy/liver wedge biopsy Acute Blood Loss Anemia HTN DM Asthma - transfuse PRBC - monitor H/H - f/u pathology - pain control - antiemetics - incentive spirometry - IVF - keep NPO for now - DVT prophylaxis - continue ICU monitoring
[2018-01-20] MEDS: FAMOTIDINE 20 MG/50 ML IVPB 20 MG/50 ML MG IVPB SCH ×2 (11:17→22:03)
[2018-01-20] MEDS: LOSARTAN 50MG/HCTZ 12.5MG 1 TAB (FP) PO SCH (11:18)
--- NOTE | 2018-01-20 12:03 | PN ---
Progress Note (short form) - Note Progress Note: POD#2 Events of this AM noted Pt felt slightly dizzy last evening at 11 PM going into bathroom This am (6:30), pulse increased to 120-123, BP dropped to 80/51 H/H decreased to 8.8/25.8 CT sacn reviewed with Radiologist- Large collection over distal stomach probably blood Pt seen and examined P-122 BP-111/66 Conjunctivae- pale Pt sitting up in bed- feels tired Abd- all trocar sites clean,dry no hematoma of abdominal wall Pt received 1 unit PRBC- now waiting for 2nd unit Will repeat H/H after second unit Discussed all details with pt and relative at bedside P- Transfuse 2nd PRBC, then re-check H/H If H/H, V/S remain unsatisfactory, will continue to transfuse If transfusion not effective (after 3rd/4th unit), may need to re-explore pt All details explained to pt and family member
[2018-01-20 16:36] LABS: HEMATOCRIT 30.9 % (32.4-45.2); HEMOGLOBIN 10.6 GM/dL (10.7-15.3); MCH 30.7 pg (25.7-33.7); MCHC 34.2 g/dl (32.0-36.0); MEAN CELL VOLUME 89.9 fl (80-96); MEAN PLT VOLUME 8.2 fl (7.5-11.1); PLATELET COUNT 190 K/MM3 (134-434); RBC 3.44 M/mm3 (3.60-5.2); WHITE BLOOD COUNT 15.4 K/mm3 (4.0-10.0)
[2018-01-20] MEDS: SODIUM CHLORIDE 1,000 ML IV SCH (19:04)
[2018-01-20 23:12] LABS: BASO % 0.3 % (0-2.0); HEMATOCRIT 30.6 % (32.4-45.2); HEMOGLOBIN 10.5 GM/dL (10.7-15.3); LYMPH % 19.3 % (8-40); MCH 29.5 pg (25.7-33.7); MCHC 34.2 g/dl (32.0-36.0); MEAN CELL VOLUME 86.1 fl (80-96); MEAN PLT VOLUME 7.9 fl (7.5-11.1); MONO % 9.4 % (3.8-10.2); PLATELET COUNT 162 K/MM3 (134-434); RBC 3.55 M/mm3 (3.60-5.2); RDW 14.5 % (11.6-15.6); WHITE BLOOD COUNT 12.7 K/mm3 (4.0-10.0)
[2018-01-21] MEDS: SODIUM CHLORIDE 1,000 ML IV SCH ×3 (03:00→21:41)
[2018-01-21 06:02] LABS: HEMATOCRIT 29.9 % (32.4-45.2); HEMOGLOBIN 10.3 GM/dL (10.7-15.3); MCH 29.6 pg (25.7-33.7); MCHC 34.4 g/dl (32.0-36.0); PLATELET COUNT 165 K/MM3 (134-434); RBC 3.48 M/mm3 (3.60-5.2); RDW 15.1 % (11.6-15.6); WHITE BLOOD COUNT 12.6 K/mm3 (4.0-10.0)
[2018-01-21] MEDS: INSULIN SLIDING SCALE (NOVOLOG) 1 VIAL SQ SCH ×4 (06:23→21:37)
[2018-01-21 06:36] LABS: INR 1.27 (0.82-1.09); PROTHROMBIN TIME (PATIENT) 14.4 SEC (9.7-13.0)
[2018-01-21 06:38] LABS: CHLORIDE 107 mmol/L (98-107); SODIUM 142 mmol/L (136-145)
[2018-01-21 06:46] LABS: ALBUMIN 2.7 g/dl (3.4-5.0); ALK PHOS 67 U/L (45-117); ANION GAP 7 (8-16); BILIRUBIN,TOTAL 0.6 mg/dL (0.2-1.0); BLOOD UREA NITROGEN 12 mg/dL (7-18); CALCIUM 8.1 mg/dL (8.5-10.1); CO2 28 mmol/L (21-32); CREATININE 0.7 mg/dL (0.55-1.02); GLUCOSE,RANDOM 156 mg/dL (74-106); MAGNESIUM 2.3 mg/dL (1.8-2.4); PHOSPHOROUS 1.5 mg/dL (2.5-4.9); SGOT/AST 82 U/L (15-37); SGPT/ALT 132 U/L (12-78); TOT PROT 5.4 g/dl (6.4-8.2)
[2018-01-21] MEDS ORDERED: NAPH,MB-DB/K PH,MBDB POWDER PACKET PO ONE (08:00)
[2018-01-21] MEDS ORDERED: POTASSIUM PHOSPHATE 30 MM in SODIUM CHLORIDE 250 ML IVPB ONE (09:15)
[2018-01-21] MEDS ORDERED: PT OWN MED DRAWER 7, Y5N ONE (10:52)
[2018-01-21] MEDS: LOSARTAN 50MG/HCTZ 12.5MG 1 TAB (FP) PO SCH (11:12)
[2018-01-21] MEDS: FAMOTIDINE 20 MG/50 ML IVPB 20 MG/50 ML MG IVPB SCH ×2 (11:12→21:37)
--- NOTE | 2018-01-21 11:29 | PN ---
Physical Exam: SUBJECTIVE: Patient seen and examined ICU. Weekend events noted, pt required 3 units PRBC's and states she is feeling much better today than yesterday. States she is no longer lightheaded or dizzy. Denies Chest pain, SOB, worsening abdominal pain, nausea, vomiting. OBJECTIVE: Vital Signs Period Temp Pulse Resp BP Sys/[place] Pulse Ox Last 24 Hr 98 F-98.6 F 88-124 18-24 118-153/61-88 99 GENERAL: Awake, alert, and fully oriented, in no acute distress. HEAD: Normal with no signs of trauma. EYES: sclera anicteric, conjunctiva clear. No lid lag. EARS, NOSE, THROAT: Ears normal, nares patent, Moist mucous membranes. NECK: supple without lymphadenopathy, JVD, or masses. LUNGS: Breath sounds equal but decreased, clear to auscultation bilaterally. No wheezes, and no crackles. No accessory muscle use. HEART: Regular rate and rhythm, normal S1 and S2 without murmur, rub or gallop. ABDOMEN: Morbidly obese, Soft, mildly tender to palpation, not distended, normoactive bowel sounds, no guarding, no rebound, no masses. MUSCULOSKELETAL: Normal range of motion at all joints. No bony deformities or tenderness. No CVA tenderness. UPPER EXTREMITIES: warm, well-perfused. No cyanosis. No clubbing. No peripheral edema. LOWER EXTREMITIES: warm, well-perfused. No calf tenderness. No peripheral edema. NEUROLOGICAL: Cranial nerves II-XII grossly intact. Normal speech. Gait not observed SKIN: Warm, dry, normal turgor, no rashes or lesions noted. Laboratory Results - last 24 hr 01/18/18 01/18/18 01/20/18 11:13 21:09 13:50 WBC RBC Hgb Hct MCV MCH MCHC RDW Plt Count MPV Absolute Neuts (auto) Neutrophils % Lymphocytes % Monocytes % Eosinophils % Basophils % Nucleated RBC % PT with INR INR Sodium Potassium Chloride Carbon Dioxide Anion Gap BUN Creatinine Creat Clearance w eGFR POC Glucometer 261.19059 232.07076 Random Glucose Calcium Phosphorus Magnesium Total Bilirubin AST ALT Alkaline Phosphatase Total Protein Albumin Blood Type O POSITIVE Crossmatch See Detail 01/20/18 01/20/18 01/20/18 15:30 17:13 21:57 WBC 15.4 H RBC 3.44 L Hgb 10.6 L Hct 30.9 L D MCV 89.9 MCH 30.7 MCHC 34.2 RDW 13.0 Plt Count 190 D MPV 8.2 Absolute Neuts (auto) Neutrophils % Lymphocytes % Monocytes % Eosinophils % Basophils % Nucleated RBC % PT with INR INR Sodium Potassium Chloride Carbon Dioxide Anion Gap BUN Creatinine Creat Clearance w eGFR POC Glucometer 220.75985 209.06383 Random Glucose Calcium Phosphorus Magnesium Total Bilirubin AST ALT Alkaline Phosphatase Total Protein Albumin Blood Type Crossmatch 01/20/18 01/21/18 01/21/18 23:00 05:30 05:30 WBC 12.7 H 12.6 H RBC 3.55 L 3.48 L Hgb 10.5 L 10.3 L Hct 30.6 L 29.9 L MCV 86.1 86.0 MCH 29.5 29.6 MCHC 34.2 34.4 RDW 14.5 D 15.1 Plt Count 162 165 MPV 7.9 8.0 Absolute Neuts (auto) 9.0 Neutrophils % 71.0 Lymphocytes % 19.3 D Monocytes % 9.4 Eosinophils % 0.0 Basophils % 0.3 Nucleated RBC % 0 PT with INR 14.40 H INR 1.27 H Sodium Potassium Chloride Carbon Dioxide Anion Gap BUN Creatinine Creat Clearance w eGFR POC Glucometer Random Glucose Calcium Phosphorus Magnesium Total Bilirubin AST ALT Alkaline Phosphatase Total Protein Albumin Blood Type Crossmatch 01/21/18 01/21/18 05:30 05:30 WBC RBC Hgb Hct MCV MCH MCHC RDW Plt Count MPV Absolute Neuts (auto) Neutrophils % Lymphocytes % Monocytes % Eosinophils % Basophils % Nucleated RBC % PT with INR INR Sodium 142 Potassium 4.0 Chloride 107 Carbon Dioxide 28 Anion Gap 7 L BUN 12 Creatinine 0.7 Creat Clearance w eGFR > 60 POC Glucometer 165.57669 Random Glucose 156 H Calcium 8.1 L Phosphorus 1.5 L Magnesium 2.3 Total Bilirubin 0.6 AST 82 H ALT 132 H Alkaline Phosphatase 67 Total Protein 5.4 L Albumin 2.7 L Blood Type Crossmatch Active Medications Generic Name Dose Route Start Last Admin Trade Name Freq PRN Reason Stop Dose Admin Acetaminophen 325 mg 01/18/18 16:04 Tylenol - PO 01/21/18 16:03 Q4H PRN PAIN 1-5 Acetaminophen 325 mg 01/19/18 17:20 Tylenol - PO Q4H PRN HEADACHE HCTZ/Losartan Potassium 2 tab 01/19/18 10:00 01/21/18 11:12 Hyzaar - PO 2 tab DAILY MONICA Administration Famotidine/Sodium Chloride 20 mg in 50 mls @ 100 mls/hr 01/18/18 22:00 11:12 Pepcid 20 Mg Premixed Ivpb - IVPB 100 mls/hr BID MONICA Administration Sodium Chloride 1,000 mls @ 100 mls/hr 01/20/18 16:23 01/21/18 03:00 Normal Saline - IV 100 mls/hr ASDIR MONICA Administration Potassium Phosphate 30 mm/ 260 mls @ 62.5 mls/hr 01/21/18 09:15 01/21/18 10: 15 Sodium Chloride IVPB 01/21/18 13:24 62.5 mls/hr ONCE ONE Administration Insulin Aspart 1 vial 01/20/18 17:37 01/21/18 06:23 Novolog Vial Sliding Scale - SQ Not Given ACHS MONICA Protocol Morphine Sulfate 2 mg 01/19/18 10:47 01/20/18 01:59 Morphine Sulfate IVPUSH 2 mg Q4H PRN Administration PAIN LEVEL 6-10 Ondansetron HCl 4 mg 01/18/18 15:39 01/20/18 05:23 Zofran Injection IVPUSH 4 mg Q4H PRN Administration NAUSEA AND/OR VOMITING Oxycodone HCl 5 mg 01/18/18 16:04 01/19/18 05:36 Roxicodone - PO 5 mg Q4H PRN Administration PAIN 1-5 ASSESSMENT/PLAN: 52 yo female admitted to the ICU for monitoring s/p sleeve gastrectomy with EGD and liver biopsy. post-op day 0 Neuro -No known neuro issues at this time Cardio -Acute blood loss anemia (01/20), resolved received 3 units PRBC's yesterday, H/H stabilized at 10.0 recheck CBC Q12 as per surgery -HTN Hyzaar 100/25 PO Daily Currently normotensive Respiratory -No known respiratory issues -Incentive spirometry to prevent post op atelectasis/pneumonia GI -s/p sleeve gastrectomy and liver biopsy advancing diet carefully as per surgery Zofran and Reglan for nausea PRN Acute transaminitis likely due to fatty liver vs recent liver biopsy -GERD Famotidine 20 mg IVPB BID Renal -No known renal issues at this time Follow BMP Endocrine -IDDM BGM Insulin sliding scale for glycemic control between 140-180 will adjust as necessary Post-op -Pain control Oxycodone 5 mg PO Q4 PRN Tylenol 325 mg PO Q4 PRN -Incentive spirometry -PT for early ambulation DVT Prophylaxis -Lovenox 40 SQ BID -SCDs Disposition Monitor in the ICU for now, can be transferred from ICU standpoint, will await discussion with surgery Problem List - Problems (1) Morbid obesity Code(s): E66.01 - MORBID (SEVERE) OBESITY DUE TO EXCESS CALORIES (2) S/P laparoscopic sleeve gastrectomy Code(s): Z98.84 - BARIATRIC SURGERY STATUS (3) HTN (hypertension) Code(s): I10 - ESSENTIAL (PRIMARY) HYPERTENSION (4) IDDM (insulin dependent diabetes mellitus) Code(s): E11.9 - TYPE 2 DIABETES MELLITUS WITHOUT COMPLICATIONS; Z79.4 - SENIOR CARE (CURRENT) USE OF INSULIN (5) GERD (gastroesophageal reflux disease) Code(s): K21.9 - GASTRO-ESOPHAGEAL REFLUX DISEASE WITHOUT ESOPHAGITIS Visit type - Emergency Visit Emergency Visit: No - New Patient This patient is new to me today: No - Critical Care Critical Care patient: Yes Total Critical Care Time (in minutes): 35 Critical Care Statement: The care of this patient involved high complexity decision making to prevent further life threatening deterioration of the patient 's condition and/or to evaluate & treat vital organ system(s) failure or risk of failure.
--- NOTE | 2018-01-21 13:07 | PN ---
Progress Note (short form) - Note Progress Note: POD#3 Afebrile P- now 88-96 BP-150/66 Pt sitting OOB in chair not dizzy, no orthostatic changes has more energy than yesterday Received 3 units PRBC H/H-10.3/29.9 P/E- conjunctivae now pink P- Check afternoon H/H Re-start clear liquids- 3 oz po tid Cont OOB, incentive spirometer, venodyne boots Check H/H Q12h
[2018-01-21 13:59] LABS: HEMATOCRIT 29.7 % (32.4-45.2); MCH 29.3 pg (25.7-33.7); MCHC 33.7 g/dl (32.0-36.0); MEAN CELL VOLUME 86.9 fl (80-96); MEAN PLT VOLUME 8.1 fl (7.5-11.1); PLATELET COUNT 169 K/MM3 (134-434); RBC 3.42 M/mm3 (3.60-5.2); RDW 15.1 % (11.6-15.6)
--- NOTE | 2018-01-21 15:17 | PN ---
Teaching Attending Note Name of Resident: Petros Cortez ATTENDING PHYSICIAN STATEMENT I saw and evaluated the patient. I reviewed the resident's note and discussed the case with the resident. I agree with the resident's findings and plan as documented. SUBJECTIVE: Patient seen and examined in the ICU. Appropriate increase in H&H with pRBCs. Feels better today. No CP or SOB. Pain is better controlled, but still present. Intake & Output 01/18/18 01/19/18 01/20/18 01/21/18 23:59 23:59 23:59 23:59 Intake Total 2150 1600 3650 1300 Output Total 1350 1500 300 400 Balance 463 023 2209 900 Weight 197 lb 1.6 oz 198 lb 203 lb 2 oz Last Vital Signs Temp Pulse Resp BP Pulse Ox 98.6 F 94 H 18 143/76 99 01/21/18 06:00 01/21/18 12:00 01/21/18 12:00 01/21/18 12:00 01/21/18 09:00 Active Medications Acetaminophen (Tylenol -) 325 mg PO Q4H PRN PRN Reason: PAIN 1-5 Stop: 01/21/18 16:03 Acetaminophen (Tylenol -) 325 mg PO Q4H PRN PRN Reason: HEADACHE HCTZ/Losartan Potassium (Hyzaar -) 2 tab PO DAILY [facility] Last Admin: 01/21/18 11:12 Dose: 2 tab Famotidine/Sodium Chloride (Pepcid 20 Mg Premixed Ivpb -) 20 mg in 50 mls @ 100 mls/hr IVPB BID [facility] Last Admin: 01/21/18 11:12 Dose: 100 mls/hr Sodium Chloride (Normal Saline -) 1,000 mls @ 100 mls/hr IV ASDIR [facility] Last Admin: 01/21/18 03:00 Dose: 100 mls/hr Insulin Aspart (Novolog Vial Sliding Scale -) 1 vial SQ ACHS [facility]; Protocol Last Admin: 01/21/18 06:23 Dose: Not Given Morphine Sulfate (Morphine Sulfate) 2 mg IVPUSH Q4H PRN PRN Reason: PAIN LEVEL 6-10 Last Admin: 01/20/18 01:59 Dose: 2 mg Ondansetron HCl (Zofran Injection) 4 mg IVPUSH Q4H PRN PRN Reason: NAUSEA AND/OR VOMITING Last Admin: 01/20/18 05:23 Dose: 4 mg Oxycodone HCl (Roxicodone -) 5 mg PO Q4H PRN PRN Reason: PAIN 1-5 Last Admin: 01/19/18 05:36 Dose: 5 mg Gen: Awake and alert, pale Heart: Tachycardic, regular Lung: Diminished at the bases Abd: soft, (+) BS, NT, ND Ext: no edema Laboratory Results - last 24 hr 01/18/18 01/18/18 01/20/18 11:13 21:09 13:50 WBC RBC Hgb Hct MCV MCH MCHC RDW Plt Count MPV Absolute Neuts (auto) Neutrophils % Lymphocytes % Monocytes % Eosinophils % Basophils % Nucleated RBC % PT with INR INR Sodium Potassium Chloride Carbon Dioxide Anion Gap BUN Creatinine Creat Clearance w eGFR POC Glucometer 261.45279 232.29174 Random Glucose Calcium Phosphorus Magnesium Total Bilirubin AST ALT Alkaline Phosphatase Total Protein Albumin Blood Type O POSITIVE Crossmatch See Detail 01/20/18 01/20/18 01/20/18 15:30 17:13 21:57 WBC 15.4 H RBC 3.44 L Hgb 10.6 L Hct 30.9 L D MCV 89.9 MCH 30.7 MCHC 34.2 RDW 13.0 Plt Count 190 D MPV 8.2 Absolute Neuts (auto) Neutrophils % Lymphocytes % Monocytes % Eosinophils % Basophils % Nucleated RBC % PT with INR INR Sodium Potassium Chloride Carbon Dioxide Anion Gap BUN Creatinine Creat Clearance w eGFR POC Glucometer 220.26385 209.87035 Random Glucose Calcium Phosphorus Magnesium Total Bilirubin AST ALT Alkaline Phosphatase Total Protein Albumin Blood Type Crossmatch 01/20/18 01/21/18 01/21/18 23:00 05:30 05:30 WBC 12.7 H 12.6 H RBC 3.55 L 3.48 L Hgb 10.5 L 10.3 L Hct 30.6 L 29.9 L MCV 86.1 86.0 MCH 29.5 29.6 MCHC 34.2 34.4 RDW 14.5 D 15.1 Plt Count 162 165 MPV 7.9 8.0 Absolute Neuts (auto) 9.0 Neutrophils % 71.0 Lymphocytes % 19.3 D Monocytes % 9.4 Eosinophils % 0.0 Basophils % 0.3 Nucleated RBC % 0 PT with INR 14.40 H INR 1.27 H Sodium Potassium Chloride Carbon Dioxide Anion Gap BUN Creatinine Creat Clearance w eGFR POC Glucometer Random Glucose Calcium Phosphorus Magnesium Total Bilirubin AST ALT Alkaline Phosphatase Total Protein Albumin Blood Type Crossmatch 01/21/18 01/21/18 01/21/18 05:30 05:30 12:20 WBC 12.0 H RBC 3.42 L Hgb 10.0 L Hct 29.7 L MCV 86.9 MCH 29.3 MCHC 33.7 RDW 15.1 Plt Count 169 MPV 8.1 Absolute Neuts (auto) Neutrophils % Lymphocytes % Monocytes % Eosinophils % Basophils % Nucleated RBC % PT with INR INR Sodium 142 Potassium 4.0 Chloride 107 Carbon Dioxide 28 Anion Gap 7 L BUN 12 Creatinine 0.7 Creat Clearance w eGFR > 60 POC Glucometer 165.70086 Random Glucose 156 H Calcium 8.1 L Phosphorus 1.5 L Magnesium 2.3 Total Bilirubin 0.6 AST 82 H ALT 132 H Alkaline Phosphatase 67 Total Protein 5.4 L Albumin 2.7 L Blood Type Crossmatch 01/21/18 14:41 WBC RBC Hgb Hct MCV MCH MCHC RDW Plt Count MPV Absolute Neuts (auto) Neutrophils % Lymphocytes % Monocytes % Eosinophils % Basophils % Nucleated RBC % PT with INR INR Sodium Potassium Chloride Carbon Dioxide Anion Gap BUN Creatinine Creat Clearance w eGFR POC Glucometer 144.72197 Random Glucose Calcium Phosphorus Magnesium Total Bilirubin AST ALT Alkaline Phosphatase Total Protein Albumin Blood Type Crossmatch ASSESSMENT AND PLAN: Morbid Obesity S/P Laparoscopic vertical sleeve gastrectomy/liver wedge biopsy Acute Blood Loss Anemia HTN DM Asthma - Normal transfusion thresholds - Follow H/H - f/u liver pathology - pain control - Antiemetics - Incentive spirometry - PO per surgery - VTE prophylaxis - Floor when OK with surgeon Dr Bella Critical care time spent in reviewing chart, evaluating patient and formulating plan - 36 minutes.continue ICU monitoring
[2018-01-21] MEDS ORDERED: MORPHINE SULFATE 2 MG/ML VIAL IVPUSH PRN (21:06)
[2018-01-21] MEDS ORDERED: ACETAMINOPHEN 325 MG TABLET (FP) PO PRN (21:06)
[2018-01-21] MEDS ORDERED: ONDANSETRON 4 MG/2 ML VIAL IVPUSH PRN (21:06)
[2018-01-21] MEDS ORDERED: oxyCODONE HCL 5 MG TABLET PO PRN (21:06)
[2018-01-21] MEDS ORDERED: INSULIN (NOVOLOG) ASPART 100 UNITS/ML 10ML VIAL ONE (21:32)
[2018-01-22] MEDS: INSULIN SLIDING SCALE (NOVOLOG) 1 VIAL SQ SCH ×4 (06:35→22:37)
[2018-01-22] MEDS: SODIUM CHLORIDE 1,000 ML IV SCH ×2 (06:38→19:15)
[2018-01-22 07:51] LABS: HEMATOCRIT 29.3 % (32.4-45.2); HEMOGLOBIN 10.3 GM/dL (10.7-15.3); MCH 30.1 pg (25.7-33.7); MCHC 35.2 g/dl (32.0-36.0); MEAN CELL VOLUME 85.6 fl (80-96); MEAN PLT VOLUME 7.8 fl (7.5-11.1); PLATELET COUNT 178 K/MM3 (134-434); RBC 3.43 M/mm3 (3.60-5.2); RDW 14.5 % (11.6-15.6); WHITE BLOOD COUNT 11.1 K/mm3 (4.0-10.0)
[2018-01-22 08:13] LABS: ANION GAP 11 (8-16); BLOOD UREA NITROGEN 7 mg/dL (7-18); CALCIUM 8.4 mg/dL (8.5-10.1); CHLORIDE 104 mmol/L (98-107); CO2 26 mmol/L (21-32); GLUCOSE,RANDOM 133 mg/dL (74-106); MAGNESIUM 2.2 mg/dL (1.8-2.4); POTASSIUM 3.8 mmol/L (3.5-5.1); SODIUM 141 mmol/L (136-145)
[2018-01-22 08:14] LABS: CREATININE 0.6 mg/dL (0.55-1.02); PHOSPHOROUS 2.2 mg/dL (2.5-4.9)
[2018-01-22] MEDS: LOSARTAN 50MG/HCTZ 12.5MG 1 TAB (FP) PO SCH (10:18)
[2018-01-22] MEDS: FAMOTIDINE 20 MG/50 ML IVPB 20 MG/50 ML MG IVPB SCH ×2 (10:18→22:35)
--- NOTE | 2018-01-22 13:21 | PN ---
Progress Note, Physician History of Present Illness: PULMONARY ALERT,NAD,-SOB,-ABD PAIN - Current Medication List Current Medications: Active Medications Acetaminophen (Tylenol -) 325 mg PO Q4H PRN PRN Reason: HEADACHE HCTZ/Losartan Potassium (Hyzaar -) 2 tab PO DAILY [facility] Last Admin: 01/22/18 10:18 Dose: 2 tab Famotidine/Sodium Chloride (Pepcid 20 Mg Premixed Ivpb -) 20 mg in 50 mls @ 100 mls/hr IVPB BID [facility] Last Admin: 01/22/18 10:18 Dose: 100 mls/hr Sodium Chloride (Normal Saline -) 1,000 mls @ 100 mls/hr IV ASDIR [facility] Last Admin: 01/22/18 06:38 Dose: 100 mls/hr Insulin Aspart (Novolog Vial Sliding Scale -) 1 vial SQ ACHS [facility]; Protocol Last Admin: 01/22/18 11:21 Dose: Not Given Morphine Sulfate (Morphine Sulfate) 2 mg IVPUSH Q4H PRN PRN Reason: PAIN LEVEL 6-10 Ondansetron HCl (Zofran Injection) 4 mg IVPUSH Q4H PRN PRN Reason: NAUSEA AND/OR VOMITING Oxycodone HCl (Roxicodone -) 5 mg PO Q4H PRN PRN Reason: PAIN 1-5 - Objective Vital Signs: Vital Signs Temperature 98.3 F 01/22/18 10:00 Pulse Rate 92 H 01/22/18 10:00 Respiratory Rate 18 01/22/18 10:00 Blood Pressure 143/79 01/22/18 10:00 O2 Sat by Pulse Oximetry (%) 93 L 01/21/18 21:00 Constitutional: Yes: Well Nourished, Calm Eyes: Yes: WNL HENT: Yes: WNL Neck: Yes: WNL Cardiovascular: Yes: Regular Rate and Rhythm, S1 Respiratory: Yes: CTA Bilaterally Gastrointestinal: Yes: Normal Bowel Sounds, Soft, Abdomen, Obese Extremities: Yes: WNL Edema: No Labs: CBC, BMP 01/22/18 06:15 01/22/18 06:15 INR, PTT INR 1.27 (0.82-1.09) H 01/21/18 05:30 Problem List - Problems (1) Anemia Code(s): D64.9 - ANEMIA, UNSPECIFIED (2) GERD (gastroesophageal reflux disease) Code(s): K21.9 - GASTRO-ESOPHAGEAL REFLUX DISEASE WITHOUT ESOPHAGITIS (3) HTN (hypertension) Code(s): I10 - ESSENTIAL (PRIMARY) HYPERTENSION (4) Morbid obesity Code(s): E66.01 - MORBID (SEVERE) OBESITY DUE TO EXCESS CALORIES (5) S/P laparoscopic sleeve gastrectomy Code(s): Z98.84 - BARIATRIC SURGERY STATUS (6) Diabetes Code(s): E11.9 - TYPE 2 DIABETES MELLITUS WITHOUT COMPLICATIONS Assessment/Plan ASSESSMENT AND PLAN: Morbid Obesity s/p laparoscopic vertical sleeve gastrectomy/liver wedge biopsy Acute Blood Loss Anemia HTN DM Asthma - monitor H/H - pain control - incentive spirometry - IVF - DVT prophylaxis - PO as per surgery DR KAUR
--- NOTE | 2018-01-22 18:16 | PN ---
HC Provider Note (SOAP) Subjective: patient states shes feeling tired and weak with any activity Objective: appears comfortable in no distress walking the unit. patient is tachycardic with any activity Assesment: skin warm and dry lungs clear abdomen obese + BS 5 incisions healing appropriatly tender all quadrants s/p lap surgery ext no swelling or defomities Plan: 1. repeat labs in AM 2. continue IV fluids 3. clear liquid diet 4.possible discharge in AM if labs and vitals stable
[2018-01-23] MEDS: INSULIN SLIDING SCALE (NOVOLOG) 1 VIAL SQ SCH ×2 (06:08→11:17)
[2018-01-23] MEDS: SODIUM CHLORIDE 1,000 ML IV SCH (06:23)
[2018-01-23 08:07] LABS: HEMATOCRIT 30.5 % (32.4-45.2); HEMOGLOBIN 10.6 GM/dL (10.7-15.3); MCH 30.1 pg (25.7-33.7); MCHC 34.8 g/dl (32.0-36.0); MEAN CELL VOLUME 86.7 fl (80-96); PLATELET COUNT 233 K/MM3 (134-434); RBC 3.52 M/mm3 (3.60-5.2); WHITE BLOOD COUNT 9.4 K/mm3 (4.0-10.0)
[2018-01-23 08:21] LABS: ANION GAP 12 (8-16); BLOOD UREA NITROGEN 7 mg/dL (7-18); CALCIUM 8.5 mg/dL (8.5-10.1); CHLORIDE 101 mmol/L (98-107); CO2 28 mmol/L (21-32); GLUCOSE,RANDOM 148 mg/dL (74-106); POTASSIUM 3.4 mmol/L (3.5-5.1); SODIUM 141 mmol/L (136-145)
[2018-01-23 08:24] LABS: ALK PHOS 70 U/L (45-117); BILIRUBIN,TOTAL 1.1 mg/dL (0.2-1.0); CREATININE 0.7 mg/dL (0.55-1.02); SGOT/AST 24 U/L (15-37); SGPT/ALT 68 U/L (12-78)
[2018-01-23 08:37] VITALS: TEMP 99
[2018-01-23] MEDS ORDERED: PT OWN MED DRAWER 7, Y5N ONE (09:13)
[2018-01-23] MEDS: FAMOTIDINE 20 MG/50 ML IVPB 20 MG/50 ML MG IVPB SCH (09:26)
[2018-01-23] MEDS: LOSARTAN 50MG/HCTZ 12.5MG 1 TAB (FP) PO SCH (09:26)
[2018-01-23 10:27] VITALS: BP 141/68; PULSE 92
--- NOTE | 2018-01-23 11:02 | PN ---
Progress Note (short form) - Note Progress Note: POD#5 Afebrile;VSS P-92 BP-141/68 Pt doing well Tolerating PO clear liquids- 3 oz PO TID P/E-Abd- all trocar sites clean, dry WBC-9.4 H/H-10.6/30.5 P- D/C pt home Clear Liquids- 3 oz PO 4-5 times per day F/U in office 01/24/2018
[2018-01-23] MEDS ORDERED: POTASSIUM CHLORIDE TABS 20 MEQ TABLET.ER (FP) PO ONE (11:30)
--- NOTE | 2018-01-23 12:19 | PN ---
Progress Note, Physician History of Present Illness: pulmonary alert,no distress,abd pain,tolerating po,-sob - Current Medication List Current Medications: Active Medications Acetaminophen (Tylenol -) 325 mg PO Q4H PRN PRN Reason: HEADACHE HCTZ/Losartan Potassium (Hyzaar -) 2 tab PO DAILY [facility] Last Admin: 01/23/18 09:26 Dose: 2 tab Famotidine/Sodium Chloride (Pepcid 20 Mg Premixed Ivpb -) 20 mg in 50 mls @ 100 mls/hr IVPB BID [facility] Last Admin: 01/23/18 09:26 Dose: 100 mls/hr Sodium Chloride (Normal Saline -) 1,000 mls @ 100 mls/hr IV ASDIR [facility] Last Admin: 01/23/18 06:23 Dose: 100 mls/hr Insulin Aspart (Novolog Vial Sliding Scale -) 1 vial SQ ACHS [facility]; Protocol Last Admin: 01/23/18 11:17 Dose: Not Given Morphine Sulfate (Morphine Sulfate) 2 mg IVPUSH Q4H PRN PRN Reason: PAIN LEVEL 6-10 Ondansetron HCl (Zofran Injection) 4 mg IVPUSH Q4H PRN PRN Reason: NAUSEA AND/OR VOMITING Oxycodone HCl (Roxicodone -) 5 mg PO Q4H PRN PRN Reason: PAIN 1-5 - Objective Vital Signs: Vital Signs Temperature 99 F 01/23/18 08:25 Pulse Rate 92 H 01/23/18 10:15 Respiratory Rate 18 01/23/18 08:25 Blood Pressure 141/68 01/23/18 10:15 O2 Sat by Pulse Oximetry (%) 95 01/22/18 21:00 Constitutional: Yes: Well Nourished, No Distress, Calm Eyes: Yes: WNL HENT: Yes: WNL Neck: Yes: WNL Cardiovascular: Yes: Regular Rate and Rhythm, S1, S2 Respiratory: Yes: CTA Bilaterally Gastrointestinal: Yes: Normal Bowel Sounds, Soft Extremities: Yes: WNL Edema: No Labs: CBC, BMP 01/23/18 07:00 01/23/18 07:00 INR, PTT INR 1.27 (0.82-1.09) H 01/21/18 05:30 Problem List - Problems (1) Anemia Code(s): D64.9 - ANEMIA, UNSPECIFIED (2) GERD (gastroesophageal reflux disease) Code(s): K21.9 - GASTRO-ESOPHAGEAL REFLUX DISEASE WITHOUT ESOPHAGITIS (3) HTN (hypertension) Code(s): I10 - ESSENTIAL (PRIMARY) HYPERTENSION (4) Morbid obesity Code(s): E66.01 - MORBID (SEVERE) OBESITY DUE TO EXCESS CALORIES (5) S/P laparoscopic sleeve gastrectomy Code(s): Z98.84 - BARIATRIC SURGERY STATUS (6) Diabetes Code(s): E11.9 - TYPE 2 DIABETES MELLITUS WITHOUT COMPLICATIONS
--- NOTE | 2018-01-23 18:44 | PATH ---
Surgical Pathology Report Patient Name: JOSE CRENSHAW Med. Rec. #: [id number] /Age/Gender: 1965 (Age: 52) / F Account: [id number] Location: [facility] MED/SURG Taken: 01/18/2018 Received: 01/21/2018 Reported: 01/23/2018 Physicians: Cabrera Cabrera M.D. Specimen(s) Received A: GREATER CURVATURE STOMACH B: LIVER BIOPSY Clinical History Morbid obesity Final Diagnosis A. STOMACH, GREATER CURVATURE, LAPAROSCOPIC VERTICAL SLEEVE GASTRECTOMY: PORTION OF STOMACH WITH MILD CHRONIC GASTRITIS. IMMUNOHISTOCHEMICAL STAIN FOR H. PYLORI IS NEGATIVE. B. LIVER, BIOPSY: STEATOHEPATITIS, MILD; MODERATE STEATOSIS (~60%). FOCAL MILD PERIVENULAR, FOCAL MILD PERISINUSOIDAL, FOCAL MILD PORTAL FIBROSIS (STAGE I OF 4). SEE COMMENT. Comment: Biopsy is subcapsular. The liver parenchyma demonstrates moderate mixed micro and macrovesicular steatosis (~60%). Mixed inflammatory infiltrate comprised of neutrophils, lymphocytes, and macrophages are seen in portal tracts and within lobules. Focal mild cholestasis identified. No granulomas are present. Focal hepatocyte ballooning is noted. No definitive Sue hyaline is identified. The trichrome stain highlights focal mild perivenular, focal mild perisinusoidal, focal mild portal fibrosis. No increase in iron seen by Iron special stain. Overall, findings show mild steatohepatitis and moderate steatosis; stage 1 of 4 (Brunt). 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 Suggest clinical and serologic correlation. Electronically Signed Deyanira Crouch M.D. Gross Description A. Received in formalin, labeled "greater portion of the stomach," is a 94 gram, 19.0 x 3.0 x 2.7 cm. portion of stomach with a stapled margin of resection. The serosa is cason-tolliver with minimal attached fat. The mucosa is cason-pink with focally flattened folds No mucosal masses are identified. Beater [employer] Leveling Machine sections are submitted in one cassette. B. Received in formalin labeled "liver biopsy," is a 3.0 x 1.3 x 1.0 cm cason portion of soft tissue, consistent with a liver biopsy. The specimen is sectioned and benefits representative sections are submitted in one cassette. DL/01/21/201801/21/2018
== END 2018-01-23 13:26 | disposition home or self-care (01) | DRG 403 ==
LOC: JSAMEDAYSX 10:34 → EDSTATUS 13:00 → JICU 18:07 → J8W 01-21 20:50
PROVIDERS: ADMIT Surgery; ATTEND Surgery
PROC: 0FB24ZX Excision of Left Lobe Liver, Percutaneous Endoscopic Approach, Diagnostic (ICD-10-PCS; 2018-01-18)
PROC: 0DB64Z3 Excision of Stomach, Percutaneous Endoscopic Approach, Vertical (ICD-10-PCS; principal; 2018-01-18 12:00)
PROC: 30233N1 Transfusion of Nonautologous Red Blood Cells into Peripheral Vein, Percutaneous Approach (ICD-10-PCS; 2018-01-20)
DX: E66.01 Morbid (severe) obesity due to excess calories (principal); Z68.38 Body mass index [BMI] 38.0-38.9, adult; I10 Essential (primary) hypertension; J45.909 Unspecified asthma, uncomplicated; K21.9 Gastro-esophageal reflux disease without esophagitis; E11.9 Type 2 diabetes mellitus without complications; R00.0 Tachycardia, unspecified; D62 Acute posthemorrhagic anemia; R94.5 Abnormal results of liver function studies; R16.0 Hepatomegaly, not elsewhere classified; Z79.4 Long term (current) use of insulin
CPT/HCPCS: 36415; 36430; 71045-TC-FY; 74176-TC; 74241-TC-FY; 80048; 80053; 82962; 83735; 84100; 85025; 85027; 85610; 86850; 86900; 86901; 86922; 88307-TC; 94010; 94760; J7030; P9038; P9058

== ENCOUNTER 2018-06-15 05:55 | Emergency (ER) | payer OTHER ==
--- NOTE | 2018-06-15 06:06 | PDOC ---
History of Present Illness - General Chief Complaint: Nausea/Vomiting Stated Complaint: VOMITING Time Seen by Provider: 06/15/18 06:04 - History of Present Illness Initial Comments: 06/15/18 06:23 Patient is a 53 year old female with past medical history of DM, HTN, asthma, GERD, s/p sleeve gastrectomy (12/2017), presented with nausea, vomiting, and diarrhea that started a few hours ago. Last night, patient started experiencing epigastric discomfort, that was then followed by nausea and NBNB vomiting, as well as loose watery stools. Patient reported having about 5-6 episodes of vomiting and diarrhea. She reported eating salmon and potatoes in a restaurant at lunch time, and unsure if other people experienced similar symptoms. She denies headache, dizziness, fever, chills, chest pain, SOB, palpitations, urinary symptoms. Of note, patient follows up regularly with her jewel bearing maker, Dr. Perez, whom she saw the other day, and reported that "everything was fine". Past History - Past Medical History Allergies/Adverse Reactions: Allergies Allergy/AdvReac Type Severity Reaction Status Date / Time No Known Allergies Allergy Verified 06/15/18 06:04 Home Medications: Ambulatory Orders Albuterol Sulfate [Proair Hfa -] 1 - 2 inh PO TID PRN 05/23/14 Losartan/Hydrochlorothiazide [Losartan-Hctz 100-25 mg Tab] 1 each PO DAILY 05/23 metFORMIN HCL [Glucophage -] 500 mg PO BID 05/23/14 Dulaglutide [Trulicity] 0.75 mg SQ WEEKLY 01/17/18 Insulin Aspart [Novolog] 100 unit SQ PRN 01/17/18 Famotidine [Pepcid] 20 mg PO BID #60 tablet 01/18/18 Oxycodone HCl/Acetaminophen [Percocet 5-325 mg Tablet] 1 tab PO Q6H PRN #20 tablet MDD 4 01/18/18 Anemia: No Asthma: Yes Cancer: No Cardiac Disorders: No CVA: No COPD: No CHF: No Dementia: No Diabetes: Yes GI Disorders: No Disorders: No HTN: Yes Hypercholesterolemia: Yes Liver Disease: No Seizures: No Thyroid Disease: No - Surgical History Lung Surgery: Yes (RT LOBECTOMY 2009) - Immunization History Immunization Up to Date: Yes (FLU AND PNA) - Suicide/Smoking/Psychosocial Hx Smoking Status: No Smoking History: Never smoked Have you smoked in the past 12 months: No Number of Cigarettes Smoked Daily: 0 Cigars Per Day: 0 Information on smoking cessation initiated: No Hx Alcohol Use: No Drug/Substance Use Hx: No Substance Use Type: None Review of Systems - Review of Systems Constitutional: Yes: Weakness. No: Chills, Fever HEENTM: No: Recent change in vision, Nose Congestion, Hearing Loss, Difficulty Swallowing Respiratory: No: Cough, Shortness of Breath Cardiac (ROS): No: Chest Pain, Lightheadedness, Palpitations ABD/GI: Yes: Diarrhea, Nausea, Vomiting, Abdominal cramping. No: Abdominal Distended, Constipated : No: Burning, Dysuria, Discharge Musculoskeletal: No: Back Pain, Joint Pain Integumentary: No: Dryness, Erythema Neurological: No: Headache, Numbness, Tingling, Weakness *Physical Exam - Vital Signs Last Vital Signs Temp Pulse Resp BP Pulse Ox 97.7 F 108 H 18 131/86 98 06/15/18 06:04 06/15/18 06:04 06/15/18 06:04 06/15/18 06:04 06/15/18 06:04 - Physical Exam Comments: 06/15/18 06:33 General: awake, alert, oriented, not in acute distress Head: no signs of head trauma HEENT: PERRLA, EOMI, sclerae anicteric, no nasal discharge, non-erythematous oropharynx, dry mucous membranes Neck: soft, supple, trachea midline, without thyroid enlargement Lungs: clear to auscultation bilaterally, good air entry Heart: regular rate and rhythm, normal S1/S2, no m,r,g Abdomen: soft, +mild epigastric tenderness, nondistended, NABS, no guarding, no masses Ext: +2 pulses, no peripheral edema, cyanosis or clubbing Moderate Sedation - Procedure Monitoring Vital Signs: Procedure Monitoring Vital Signs Temperature 97.7 F 06/15/18 06:04 Pulse Rate 108 H 06/15/18 06:04 Respiratory Rate 18 06/15/18 06:04 Blood Pressure 131/86 06/15/18 06:04 O2 Sat by Pulse Oximetry (%) 98 06/15/18 06:04 Medical Decision Making - Medical Decision Making 06/15/18 06:36 Patient is a 53 year old female with past medical history of DM, HTN, asthma, GERD, s/p sleeve gastrectomy (12/2017), presented with nausea, vomiting, and diarrhea that started a few hours ago. DDx include but not limited to Acute gastroenteritis, GERD, GI obstruction, colitis, ACS, pancreatitis, cholecystitis CBC, CMP, Mg, Phos, lipase EKG, cardiac enzymes IV Protonix 40mg IV Zofran 8mg IV fluids 06/15/18 07:01 Will sign out to Dr. De Jesus *DC/Admit/Observation/Transfer - Referrals Referrals: Douglas Booth MD [Primary Care Provider] - - Patient Instructions - Post Discharge Activity
--- NOTE | 2018-06-15 06:19 | PDOC ---
Attending Attestation - Resident Resident Name: Kaylee Javed - ED Attending Attestation I have performed the following: I have examined & evaluated the patient, The case was reviewed & discussed with the resident, I agree w/resident's findings & plan - HPI HPI: 06/15/18 06:18 Pt comes with N/V/D since last night, thinks she was food poisoned by restaurant salmon. No Fevers or chills. Comes with 5 episodes vomiting and diarrhea. - Physicial Exam PE: 06/15/18 06:56 Agree with resident exam - Medical Decision Making 06/15/18 06:56 Labs, hydration, we will sign out to the day ER team.
[2018-06-15] MEDS ORDERED: ONDANSETRON 4 MG/2 ML VIAL IVPUSH ONE (06:22)
[2018-06-15] MEDS ORDERED: PANTOPRAZOLE SODIUM 40 MG VIAL IVPB ONE (06:22)
[2018-06-15] MEDS ORDERED: SODIUM CHLORIDE 1,000 ML IV STA (06:23)
[2018-06-15 06:44] VITALS: BP 131/86; PULSE 108; TEMP 97.7; BMI 28.9
[2018-06-15] MEDS ORDERED: ONDANSETRON 4 MG/2 ML VIAL ONE (07:14)
[2018-06-15] MEDS ORDERED: PANTOPRAZOLE SODIUM 40 MG/100 ML BAG IVPB ONE (07:15)
--- NOTE | 2018-06-15 07:15 | PDOC ---
*Physical Exam - Vital Signs Last Vital Signs Temp Pulse Resp BP Pulse Ox 97.7 F 108 H 18 131/86 98 06/15/18 06:04 06/15/18 06:04 06/15/18 06:04 06/15/18 06:04 06/15/18 06:04 - Physical Exam Comments: General: Comfortable, no acute distress HEENT: PERRL, EOMI, MMM, voice normal Cards: RRR, no murmur appreciated Pulm: Comfortable on room air, clear to auscultation bilaterally Abd: Soft, nondistended, minimal epigastric TTP Ext: Atraumatic. No LE edema. ROM intact. Strength 5/5 and equal bilaterally Vasc: Extremities WWP. Skin: Normal color, no rashes or lesions Neuro: A&Ox3, CN grossly intact, normal speech, motor/sensory grossly intact and symmetric Psych: Mood appropriate to situation ED Treatment Course - LABORATORY CBC & Chemistry Diagram: 06/15/18 07:12 06/15/18 07:12 Medical Decision Making - Medical Decision Making 06/15/18 07:12 Irlanda Romero is a 53yo woman with a PMH of DM, HTN, asthma, GERD, s/p sleeve gastrectomy in December 2017 (had recent f/u, no issues) who presented with nausea, vomiting and diarrhea overnight. - Most likely gastroenteritis, but given medical and surgical history, need to r /o obstruction, pancreatitis, cholecystitis. Given age and gender, will r/o ACS as a cause of nausea/vomiting though this is less likely with diarrhea. Acute surgical problem with prior gastrectomy less likely as pt does not have acute abdomen on exam. - CBC, CMP, mag, phos, lipase, EKG, trop ordered for evaluation. Labs not yet resulted - Given Protonix and zofran for symptoms. IVF for rehydration 06/15/18 08:25 - Labs reviewed. Notable for slight leukocytosis to 11, likely secondary to inflammatory response from vomiting. Glucose elevated at 173 - Pt feeling improved, able to drink water at bedside. Will provide with crackers to PO challenge - Sending urine sample 06/15/18 08:51 - UA negative - Continues to feel well. Able to eat crackers, drink water. Feels ready to be discharged home. Discussed home care, follow up, return precautions and Ms Romero states understanding and agreement with the plan. Discussed with Dr Barragan. Salome De Jesus PGY1 *DC/Admit/Observation/Transfer Diagnosis at time of Disposition: Nausea, vomiting and diarrhea - Discharge Dispostion Condition at time of disposition: Stable Decision to Admit order: No - Referrals Referrals: Douglas Booth MD [Primary Care Provider] - - Patient Instructions Printed Discharge Instructions: DI for Viral Gastroenteritis -- Adult, Gastroenteritis Diet Additional Instructions: Discharge Instructions: You were seen in the emergency department for nausea, vomiting, and diarrhea. You were given medications to help with your symptoms as well as IV fluids for rehydration. You had blood tests completed to check your liver, gallbladder, pancreas and kidneys which were all normal. Home Care: - Make sure you are staying hydrated. It is OK (and may be better tolerated) to drink small amounts at a time, but make sure you are drinking liquids frequently. Clear liquids such as water, apple juice, or sports drinks are all good options. Avoid dairy products, sour/acidic drinks, or anything containing caffeine or alcohol. - There is no need to force yourself to eat as long as you are drinking liquids. - When you do start eating, try bland and easy to digest foods first. See the attached information sheet for suggestions. Follow Up: - Make an appointment to see your primary doctor within the next week, especially if you are not improving. - Return for immediate medical care if you have persistent vomiting for more than 2-3 days, cannot tolerate any food or liquids, develop fever to 101F or higher, notice blood in your vomit or stool, have black/tar-like stool, or become dehydrated (for example very dark or minimal urine). - Post Discharge Activity Forms/Work/School Notes: Parent(s) Back to Work Note
[2018-06-15 07:23] LABS: BASO % 0.2 % (0-2.0); EOS % 0.4 % (0-4.5); HEMATOCRIT 44.6 % (32.4-45.2); LYMPH % 4.1 % (8-40); MCH 31.4 pg (25.7-33.7); MCHC 35.9 g/dl (32.0-36.0); MEAN CELL VOLUME 87.4 fl (80-96); MEAN PLT VOLUME 8.1 fl (7.5-11.1); MONO % 4.3 % (3.8-10.2); PLATELET COUNT 234 K/MM3 (134-434); RBC 5.11 M/mm3 (3.60-5.2); RDW 13.7 % (11.6-15.6); WHITE BLOOD COUNT 11.1 K/mm3 (4.0-10.0)
[2018-06-15 08:11] LABS: ALBUMIN 4.1 g/dl (3.4-5.0); ALK PHOS 123 U/L (45-117); ANION GAP 7 MMOL/L (8-16); BILIRUBIN,TOTAL 0.5 mg/dL (0.2-1); BLOOD UREA NITROGEN 22 mg/dL (7-18); CHLORIDE 108 mmol/L (98-107); CO2 25 mmol/L (21-32); CREATININE 0.9 mg/dL (0.55-1.3); GLUCOSE,RANDOM 172 mg/dL (74-106); LIPASE 154 U/L (73-393); MAGNESIUM 2.2 mg/dL (1.8-2.4); POTASSIUM 4.1 mmol/L (3.5-5.1); SGOT/AST 18 U/L (15-37); SGPT/ALT 24 U/L (13-61); SODIUM 140 mmol/L (136-145); TOT PROT 7.4 g/dl (6.4-8.2)
[2018-06-15 08:40] LABS: URINE APPEARANCE CLEAR; URINE BILIRUBIN NEGATIVE (<2.0 mg/dL); URINE COLOR YELLOW; URINE GLUCOSE (UA) NEGATIVE (NEGATIVE); URINE KETONE NEGATIVE (NEGATIVE); URINE LEUK ESTERASE NEGATIVE (NEGATIVE); URINE NITRITE NEGATIVE (NEGATIVE); URINE PROTEIN NEGATIVE (NEGATIVE); URINE UROBILINOGEN NEGATIVE mg/dL (0.2-1.0)
[2018-06-15 12:16] LABS: ACANTHOCYTES 0; ANISOCYTOSIS 0; HELMET CELLS 0; HOWELL-JOLLY BODIES 0; MACROCYTOSIS 0; OVALOCYTE 0; PLATELET ESTIMATE NORMAL; ROULEAU 0; SICKELED CELLS 0; TARGET CELLS 0; TEAR DROP CELLS 0; TOXIC GRANULATION 0
--- NOTE | 2018-06-16 12:22 | EKG ---
Test Reason : Blood Pressure : / mmHG Vent. Rate : 103 BPM Atrial Rate : 103 BPM P-R Int : 126 ms QRS Dur : 078 ms QT Int : 334 ms P-R-T Axes : 049 032 081 degrees QTc Int : 437 ms SINUS TACHYCARDIA NONSPECIFIC T WAVE ABNORMALITY ABNORMAL ECG WHEN COMPARED WITH ECG OF 08-NOV-2017 12:17, NO SIGNIFICANT CHANGE WAS FOUND Confirmed by CHAYO BRADLEY MD ([id number]) on 06/16/2018 12:22:34 PM Referred By: Confirmed By:CHAYO BRADLEY MD
== END 2018-06-15 09:04 | disposition home or self-care (01) ==
LOC: JER 05:55
PROC: 3E033GC Introduction of Other Therapeutic Substance into Peripheral Vein, Percutaneous Approach (ICD-10-PCS; principal; 2018-06-15)
PROC: 3E0337Z Introduction of Electrolytic and Water Balance Substance into Peripheral Vein, Percutaneous Approach (ICD-10-PCS; 2018-06-15)
DX: R11.2 Nausea with vomiting, unspecified (principal); R19.7 Diarrhea, unspecified
CPT/HCPCS: 36415; 80053; 81003; 82550; 83690; 83735; 84100; 84484; 85025; 93005; 93010; 99283-25; J7030

== ENCOUNTER 2018-06-23 17:55 | Emergency (ER) | payer OTHER ==
[2018-06-23 17:59] VITALS: BP 123/67; PULSE 78; TEMP 97.6; BMI 29.6
--- NOTE | 2018-06-23 18:37 | PDOC ---
History of Present Illness - General Chief Complaint: Urinary Problem Stated Complaint: PAINFUL URINATION Time Seen by Provider: 06/23/18 18:19 - History of Present Illness Initial Comments: 06/23/18 18:37 53-year-old female with dysuria 2 days without systemic symptoms. Past medical history significant for diabetes hypertension and asthma Past History - Past Medical History Allergies/Adverse Reactions: Allergies Allergy/AdvReac Type Severity Reaction Status Date / Time No Known Allergies Allergy Verified 06/23/18 17:56 Home Medications: Ambulatory Orders Losartan/Hydrochlorothiazide [Losartan-Hctz 100-25 mg Tab] 1 each PO DAILY 05/23 Nitrofurantoin Monohyd/M-Cryst [Macrobid -] 100 mg PO BID #14 capsule 06/23/18 Sitagliptin Phos/Metformin HCl [Janumet 50-500 mg Tablet] 1 each PO ASDIR Anemia: No Asthma: Yes Cancer: No Cardiac Disorders: No CVA: No COPD: No CHF: No Dementia: No Diabetes: Yes GI Disorders: No Disorders: No HTN: Yes Hypercholesterolemia: Yes Liver Disease: No Seizures: No Thyroid Disease: No - Surgical History Lung Surgery: Yes (RT LOBECTOMY 2009) - Immunization History Immunization Up to Date: Yes (FLU AND PNA) - Suicide/Smoking/Psychosocial Hx Smoking Status: No Smoking History: Never smoked Have you smoked in the past 12 months: No Number of Cigarettes Smoked Daily: 0 Cigars Per Day: 0 Hx Alcohol Use: No Drug/Substance Use Hx: No Substance Use Type: None Review of Systems - Review of Systems Constitutional: No: Fever : Yes: Dysuria *Physical Exam - Vital Signs Last Vital Signs Temp Pulse Resp BP Pulse Ox 97.6 F 78 18 123/67 99 06/23/18 17:57 06/23/18 17:57 06/23/18 17:57 06/23/18 17:57 06/23/18 17:57 - Physical Exam Comments: 06/23/18 18:37 HEAD: NC/AT EYES: Conjuntiva clear NEUROLOGIC: No gross sensory or motor deficits, NVID SKIN: Normal color and temperature no lesions or rashes Moderate Sedation - Procedure Monitoring Vital Signs: Procedure Monitoring Vital Signs Temperature 97.6 F 06/23/18 17:57 Pulse Rate 78 06/23/18 17:57 Respiratory Rate 18 06/23/18 17:57 Blood Pressure 123/67 06/23/18 17:57 O2 Sat by Pulse Oximetry (%) 99 06/23/18 17:57 *DC/Admit/Observation/Transfer Diagnosis at time of Disposition: Urinary tract infection - Discharge Dispostion Disposition: HOME Condition at time of disposition: Stable Decision to Admit order: No - Prescriptions Prescriptions: Nitrofurantoin Monohyd/M-Cryst [Macrobid -] 100 mg PO BID #14 capsule - Referrals Referrals: Douglas Booth MD [Primary Care Provider] - - Patient Instructions Printed Discharge Instructions: Urinary Tract Infection Additional Instructions: Please take the antibiotics as directed return to the emergency room should symptoms worsen or go unresolved and follow up with her primary care physician in one to 2 days for further evaluation and treatment options. - Post Discharge Activity
[2018-06-23 18:41] LABS: URINE APPEARANCE CLEAR; URINE BILIRUBIN NEGATIVE (<2.0 mg/dL); URINE COLOR STRAW; URINE GLUCOSE (UA) NEGATIVE (NEGATIVE); URINE KETONE NEGATIVE (NEGATIVE); URINE LEUK ESTERASE TRACE (NEGATIVE); URINE NITRITE NEGATIVE (NEGATIVE); URINE PROTEIN NEGATIVE (NEGATIVE); URINE UROBILINOGEN NEGATIVE mg/dL (0.2-1.0)
[2018-06-23 18:46] LABS: EPI CELLS RARE /HPF (FEW); URINE MUCUS RARE
== END 2018-06-23 19:02 | disposition home or self-care (01) ==
LOC: JERFT 17:55
DX: N39.0 Urinary tract infection, site not specified (principal); I10 Essential (primary) hypertension; E11.9 Type 2 diabetes mellitus without complications; Z79.84 Long term (current) use of oral hypoglycemic drugs; J45.909 Unspecified asthma, uncomplicated
CPT/HCPCS: 81003; 81015; 87086; 99281-25

== ENCOUNTER 2018-10-13 23:12 | Emergency (ER) | payer OTHER ==
--- NOTE | 2018-10-13 23:22 | PDOC ---
History of Present Illness - General Chief Complaint: Vaginal Bleeding Stated Complaint: BLEEDING Time Seen by Provider: 10/13/18 23:22 Past History - Past Medical History Allergies/Adverse Reactions: Allergies Allergy/AdvReac Type Severity Reaction Status Date / Time No Known Allergies Allergy Verified 06/23/18 17:56 Home Medications: Ambulatory Orders Losartan/Hydrochlorothiazide [Losartan-Hctz 100-25 mg Tab] 1 each PO DAILY 05/23 Sitagliptin Phos/Metformin HCl [Janumet 50-500 mg Tablet] 1 each PO ASDIR Anemia: No Asthma: Yes Cancer: No Cardiac Disorders: No CVA: No COPD: No CHF: No Dementia: No Diabetes: Yes GI Disorders: No Disorders: No HTN: Yes Hypercholesterolemia: Yes Liver Disease: No Seizures: No Thyroid Disease: No - Surgical History Lung Surgery: Yes (RT LOBECTOMY 2009) - Immunization History Immunization Up to Date: Yes (FLU AND PNA) - Suicide/Smoking/Psychosocial Hx Smoking Status: No Smoking History: Never smoked Have you smoked in the past 12 months: No Number of Cigarettes Smoked Daily: 0 Cigars Per Day: 0 Hx Alcohol Use: No Drug/Substance Use Hx: No Substance Use Type: None *DC/Admit/Observation/Transfer Diagnosis at time of Disposition: Vaginal bleeding - Discharge Dispostion Disposition: HOME Condition at time of disposition: Good Decision to Admit order: No - Referrals Referrals: Douglas Booth MD [Primary Care Provider] - - Patient Instructions Printed Discharge Instructions: DI for Vaginal Bleeding Additional Instructions: You came to the ED for vaginal bleeding. You did not have a total hysterectomy , because you still have a cervix. You should call your RESOURCE PROTECTION SPECIALIST, Dr. Parada tomorrow AM to discuss what kind of surgery you had and to arrange follow up. Vaginal bleeding in a post menopausal woman may be a sign of endometrial cancer , so it is very important that you follow up with your RESOURCE PROTECTION SPECIALIST. Return to the ED for severe pain, fever, nausea and vomiting or heavy bleeding soaking through one pad per hour for two hours in a row. - Post Discharge Activity
[2018-10-13 23:27] VITALS: BP 158/100; PULSE 81; TEMP 97.8; BMI 28.3
== END 2018-10-13 23:56 | disposition home or self-care (01) ==
LOC: FER 23:12
DX: N93.9 Abnormal uterine and vaginal bleeding, unspecified (principal); E11.9 Type 2 diabetes mellitus without complications; I10 Essential (primary) hypertension; E78.00 Pure hypercholesterolemia, unspecified; J45.909 Unspecified asthma, uncomplicated
CPT/HCPCS: 99282-25

== ENCOUNTER 2019-03-12 06:11 | Day surgery (SDC) | payer OTHER ==
[2019-03-11 09:27] VITALS: BMI 29.8
[~2019-03-12 06:11] MED LIST: ACETAMINOPHEN 325 MG TABLET (FP) PO PRN
[2019-03-12] MEDS ORDERED: CYCLOPENTOLATE HCL 1% OPHTH SOLN 2 ML BOTTLE ONE (06:14)
[2019-03-12] MEDS ORDERED: PHENYLEPHRINE 2.5% OPHTH SOLN 15 ML BOTTLE ONE (06:15)
[2019-03-12] MEDS ORDERED: OFLOXACIN 0.3% OPHTHALMIC SOLUTION 5 ML BOTTLE ONE (06:15)
[2019-03-12] MEDS ORDERED: KETOROLAC TROMETHAMINE 0.5% EYE DROP 1 DROP DROPS ONE (06:15)
[2019-03-12] MEDS ORDERED: TROPICAMIDE 1% OPHTH SOLN 15 ML BOTTLE ONE (06:16)
[2019-03-12] MEDS: PHENYLEPHRINE 2.5% OPHTH SOLN 15 ML BOTTLE OP SCH ×3 (06:30→06:40)
[2019-03-12] MEDS: KETOROLAC TROMETHAMINE 0.5% EYE DROP 1 DROP DROPS OP SCH ×3 (06:30→06:40)
[2019-03-12] MEDS: CYCLOPENTOLATE HCL 1% OPHTH SOLN 2 ML BOTTLE OP SCH ×3 (06:30→06:40)
[2019-03-12] MEDS: TROPICAMIDE 1% OPHTH SOLN 15 ML BOTTLE OP SCH ×3 (06:30→06:40)
[2019-03-12] MEDS: OFLOXACIN 0.3% OPHTHALMIC SOLUTION 5 ML BOTTLE OP SCH ×3 (06:30→06:40)
[2019-03-12] MEDS ORDERED: CHONDROITIN SU A/HYALUR SOD 1 KIT ONE (07:09)
[2019-03-12] MEDS ORDERED: EPINEPHrine/PF 1 MG/1 ML (1:1,000) AMPULE ONE (07:28)
[2019-03-12] MEDS ORDERED: BUPIVACAINE HCL/PF 0.75% 10 ML VIAL ONE (07:29)
[2019-03-12] MEDS ORDERED: LIDOCAINE HCL/PF 2% SDV 5ML VIAL ONE (07:29)
[2019-03-12] MEDS ORDERED: VANCOMYCIN 500 MG VIAL (RESTRICTED TO ID ONLY) ONE (07:29)
[2019-03-12] MEDS ORDERED: BSS (NA/CA/MG/K) BALANCED SALT SOLUTION OPHTH SOLN 15 ML BOTTLE ONE (07:30)
[2019-03-12] MEDS ORDERED: WATER FOR INJ,STERILE 10 ML ONE (07:30)
[2019-03-12] MEDS ORDERED: TETRACAINE 0.5% OPHTH SOLN 2 ML BOTTLE ONE (07:30)
[2019-03-12] MEDS ORDERED: LIDOCAINE HCL/PF 1% SDV 5ML VIAL ONE (07:30)
[2019-03-12] MEDS ORDERED: POVIDONE-IODINE 5% OPHTHALMIC PREP 30 ML SOLUTION ONE (07:31)
[2019-03-12] MEDS ORDERED: TRYPAN BLUE 0.5 ML DISP.SYRIN ONE (07:33)
[2019-03-12] MEDS ORDERED: ACETYLCHOLINE 1:100 INTRA-OCUL 20 MG/2 ML KIT ONE (07:34)
[2019-03-12] MEDS ORDERED: MIDAZOLAM HCL 2 MG/2 ML SINGLE DOSE VIAL ONE (08:02)
[2019-03-12] MEDS ORDERED: PROPOFOL 20 ML ONE ×2 (08:05)
[2019-03-12] MEDS ORDERED: LIDOCAINE HCL/PF 2% SDV 5ML VIAL INF ONE (08:07)
[2019-03-12] MEDS ORDERED: BUPIVACAINE HCL/PF 0.75% 10 ML VIAL NR ONE (08:07)
[2019-03-12] MEDS ORDERED: POVIDONE-IODINE 5% OPHTHALMIC PREP 30 ML SOLUTION OD ONE (08:11)
[2019-03-12] MEDS ORDERED: CHONDROITIN SU A/HYALUR SOD 1 KIT IO ONE (08:19)
[2019-03-12] MEDS ORDERED: BSS (NA/CA/MG/K) BALANCED SALT SOLUTION OPHTH SOLN 15 ML BOTTLE OD ONE (08:19)
[2019-03-12] MEDS ORDERED: LIDOCAINE HCL 1% PRESERVATIVE FREE - 30ML VIAL IO ONE (08:19)
[2019-03-12] MEDS ORDERED: EPINEPHrine/PF 1 MG/1 ML (1:1,000) AMPULE SQ ONE (08:24)
[2019-03-12 09:05] VITALS: BP 135/68; PULSE 72; TEMP 98
[2019-03-12] MEDS ORDERED: ACETAMINOPHEN 325 MG TABLET (FP) ONE (09:10)
[2019-03-12] MEDS ORDERED: ACETAMINOPHEN 325 MG TABLET (FP) PO ONE (09:13)
--- NOTE | 2019-03-12 09:26 | SPEC ---
DATE OF OPERATION: 03/12/2019 OPERATION: Phacoemulsification of right cataract with posterior chamber intraocular lens implantation. The lens used [id number], 23.5 diopter power, Serial No. [id number]. PREOPERATIVE DIAGNOSIS: Cataract, right eye. POSTOPERATIVE DIAGNOSIS: Cataract, right eye. SURGEON: Fabio Hebert M.D. ANESTHESIA: Peribulbar/Modified Van Lint/MAC. COMPLICATIONS: None. PROCEDURE: The patient was brought to the operating room and correctly identified along with the operative site and a correct intraocular lens mckeon. The patient was then given a peribulbar block under sedation with 5 mL of a 1:1 mixture of 2% Lidocaine and 0.5% Bupivacaine. Two to 3 mL of the same mixture was given as a modified Van Lint block. The eye was then prepped and draped in the usual sterile fashion including 5% Betadine solution in the conjunctival sac and an eyelid drape. An eyelid speculum was then placed into the eye. A paracentesis port was created. Viscoelastic was injected to inflate the anterior chamber. A temporal clear corneal wound was created. A continuous circular capsulorrhexis was performed. The nucleus was then hydro-dissected and removed phacoemulsification via the [id number] approach. The remaining cortical material was irrigated and aspirated from the eye. Viscoelastic was injected to inflate the capsular bag. The lens was injected into the capsular bag. Viscoelastic was then irrigated and aspirated from the eye. The intraocular lens was noted to be well centered and covered by the anterior capsular border. All wounds were found to be watertight. Topical Vancomycin was given. The eye patch and shield were placed. The patient was discharged from the operating room in stable condition. Luana [id number]
== END 2019-03-12 09:50 | disposition home or self-care (01) ==
LOC: JASU-SURG 06:11
PROVIDERS: ATTEND Ophthalmology
PROC: 08RJ3JZ Replacement of Right Lens with Synthetic Substitute, Percutaneous Approach (ICD-10-PCS; principal; 2019-03-12 08:00)
DX: H26.9 Unspecified cataract (principal); E11.9 Type 2 diabetes mellitus without complications; Z79.84 Long term (current) use of oral hypoglycemic drugs
CPT/HCPCS: 82962

== ENCOUNTER 2019-07-09 01:18 | Emergency (ER) | payer OTHER ==
[2019-07-09 01:43] VITALS: TEMP 97.9; BMI 27.3
[2019-07-09] MEDS ORDERED: methylPREDNISolone NA SUCC 125 MG/2 ML VIAL IVPUSH ONE (02:03)
[2019-07-09] MEDS ORDERED: ALBUTEROL SO4 2.5/IPRATROPIUM 0.5 INH SOL 3 ML VIAL.NEB. NEB ONE ×2 (02:03→02:10)
--- NOTE | 2019-07-09 02:10 | PDOC ---
Attending Attestation - Resident Resident Name: AlfieVeronica - ED Attending Attestation I have performed the following: I have examined & evaluated the patient, The case was reviewed & discussed with the resident, I agree w/resident's findings & plan - HPI HPI: 07/09/19 02:19 see resident hpi - Physicial Exam PE: 07/09/19 02:19 see resident exam - Medical Decision Making 07/09/19 02:20 54-year-old female with history of asthma and lung resection secondary to benign mass with shortness of breath Plan for labs, EKG, CTA to rule out PE IV steroids and duo nebs as well Pending results will hopefully discharge if improved
[2019-07-09] MEDS ORDERED: methylPREDNISolone NA SUCC 125 MG/2 ML VIAL ONE (02:36)
[2019-07-09 02:55] LABS: BASO % 1.3 % (0-2.0); EOS % 2.1 % (0-4.5); HEMATOCRIT 40.3 % (32.4-45.2); HEMOGLOBIN 13.5 GM/dL (10.7-15.3); LYMPH % 38.1 % (8-40); MCH 30.7 pg (25.7-33.7); MCHC 33.6 g/dl (32.0-36.0); MEAN CELL VOLUME 91.2 fl (80-96); MEAN PLT VOLUME 8.2 fl (7.5-11.1); NEUT % 51.5 % (42.8-82.8); PLATELET COUNT 260 K/MM3 (134-434); RBC 4.42 M/mm3 (3.60-5.2); WHITE BLOOD COUNT 8.8 K/mm3 (4.0-10.0)
[2019-07-09 03:11] LABS: PROTHROMBIN TIME (PATIENT) 11.8 SEC (9.7-13.0)
[2019-07-09 03:14] LABS: ALBUMIN 3.8 g/dl (3.4-5.0); BILIRUBIN,TOTAL 0.2 mg/dL (0.2-1); BLOOD UREA NITROGEN 11.5 mg/dL (7-18); CREATININE 0.8 mg/dL (0.55-1.3); POTASSIUM 3.8 mmol/L (3.5-5.1)
--- NOTE | 2019-07-09 04:17 | PDOC ---
History of Present Illness - General Chief Complaint: Asthma Stated Complaint: COUGH, CHEST TIGHTNESS, ASTHMA Time Seen by Provider: 07/09/19 02:00 History Source: Patient Exam Limitations: No Limitations - History of Present Illness Initial Comments: 07/09/19 04:11 [id number] with h/o RLL resection for mass, sleeve gastrectomy (12/2017), DM, HTN, asthma, GERD, who p/w SOB and cough for the past several days typical of her normal asthma exacerbation, but now with left side pain (states left low lung). She denies any recent f/c/n/v/d/c, palpitations, lightheadedness, dizziness, headache, calf pain or swelling, recent immobilization, exogenous estrogen use, or other symptoms or risk factors. Never felt like this before. No history of blood clotting issues. Past History - Past Medical History Allergies/Adverse Reactions: Allergies Allergy/AdvReac Type Severity Reaction Status Date / Time No Known Allergies Allergy Verified 07/09/19 01:40 Home Medications: Ambulatory Orders Sitagliptin Phos/Metformin HCl [Janumet 50-500 mg Tablet] 1 each PO BID Albuterol Sulfate Inhaler - [Ventolin Hfa Inhaler -] 1 - 2 inh PO Q4H 03/11/19 Losartan Potassium 50 mg PO DAILY 03/11/19 Anemia: No Asthma: Yes Cancer: No Cardiac Disorders: No CVA: No COPD: No CHF: No Dementia: No Diabetes: Yes GI Disorders: No Disorders: No HTN: Yes Hypercholesterolemia: No Liver Disease: No Seizures: No Thyroid Disease: No - Surgical History Abdominal Surgery: Yes (BARIARTRIC SURGERY) Appendectomy: No Cardiac Surgery: No Cholecystectomy: No Lung Surgery: Yes (RT LOBECTOMY 2009) Neurologic Surgery: No Orthopedic Surgery: No - Immunization History Immunization Up to Date: Yes (FLU AND PNA) - Psycho Social/Smoking Cessation Hx Smoking Status: No Smoking History: Never smoked Have you smoked in the past 12 months: No Number of Cigarettes Smoked Daily: 0 Cigars Per Day: 0 Information on smoking cessation initiated: No Hx Alcohol Use: No Drug/Substance Use Hx: No Substance Use Type: None, Alcohol Hx Substance Use Treatment: No Review of Systems - Review of Systems Able to Perform ROS?: Yes Comments:: 07/09/19 04:15 GEN: no fever, chills, malaise, or generalized weakness HEENT: no ear pain, congestion, sore throat, vision change, or eye pain CV: chest pain, no palpitations, lightheadedness, syncope, or edema RESP: SOB, wheezing, cough GI: no abdominal pain, nausea, vomiting, diarrhea, constipation, or rectal bleed : no dysuria, hematuria, or discharge MSK: no muscle weakness or pain, no joint swelling or pain NEURO: no headache, vertigo, numbness, tingling, or focal weakness PSYCH: no SI, HI, or behavior change SKIN: no jaundice, rash, lesions, or unexplained bruises ROS otherwise negative except as noted in HPI *Physical Exam - Vital Signs Last Vital Signs Temp Pulse Resp BP Pulse Ox 97.9 F 97 H 20 133/89 99 07/09/19 01:40 07/09/19 01:40 07/09/19 01:40 07/09/19 01:40 07/09/19 01:40 - Physical Exam 07/09/19 04:16 GENERAL: a bit tired but well-appearing, nontoxic, A/Ox4, no distress, answers questions appropriately HEENT: PERRLA, EOMI, moist mucous membranes NECK/BACK: no midline ttp, no spinal stepoff or deformity, no hematoma, full ROM , neck supple CARDIOVASCULAR: regular rate/rhythm, no MGR, strong peripheral pulses, capillary refill <2 seconds, extremities wwp, no edema LUNGS/RESPIRATORY: minimal respiratory distress, faint bilateral expiratory wheezes, no breath sounds RLL, well-healed 2cm scars from prior lobectomy GI/ABDOMEN: well-heaed scars from prior laparoscopy, symmetric [id number], normoactive BS, soft, no ttp, no midline pulsatile masses : no CVA tenderness EXTREMITIES: no muscle atrophy, no acute deformity SKIN: warm and dry, no pallor, no jaundice, no rash, no bruising, no skin breakdown, no cuts, no lesions NEUROLOGICAL: GCS 15, CN II-XII grossly intact, 5/5 strength proximally and distally, no facial droop Heart Score/ECG Review - History History: Slightly suspicious - Electrocardiogram EKG: Normal - Age Age: 45-65 - Risk Factors Risk Factors Heart Score: Yes Hx Hypertension, Yes Hx Diabetes Based on the list above the patient has:: >/=3 risk factors or Hx atherosclerotic disease - Troponin Troponin: </= normal limit - Score Heart Score - Total: 3 #1 07/09/19 02:03 Sinus rhythm, rate 69, normal axis and intervals, TWF in all except anterior leads, otherwise no ST-T abnormalities ED Treatment Course - LABORATORY CBC & Chemistry Diagram: 07/09/19 02:15 07/09/19 02:15 - ADDITIONAL ORDERS Additional order review: Laboratory Results 07/09/19 07/09/19 07/09/19 02:15 02:15 02:15 PT with INR 11.80 INR 1.00 PTT (Actin FS) Sodium Potassium Chloride Carbon Dioxide Anion Gap BUN Creatinine Est GFR (CKD-EPI)AfAm Est GFR (CKD-EPI)NonAf Random Glucose Calcium Total Bilirubin AST ALT Alkaline Phosphatase Creatine Kinase Troponin I B-Natriuretic Peptide 21.8 Total Protein Albumin Blood Type O POSITIVE Antibody Screen Negative 07/09/19 07/09/19 07/09/19 02:15 02:15 02:15 PT with INR INR PTT (Actin FS) 38.5 H Sodium 140 Potassium 3.8 Chloride 106 Carbon Dioxide 29 Anion Gap 5 L BUN 11.5 Creatinine 0.8 Est GFR (CKD-EPI)AfAm 96.87 Est GFR (CKD-EPI)NonAf 83.58 Random Glucose 118 H Calcium 9.0 Total Bilirubin 0.2 AST 12 L ALT 20 Alkaline Phosphatase 134 H Creatine Kinase 120 Troponin I < 0.02 B-Natriuretic Peptide Total Protein 7.0 Albumin 3.8 Blood Type Antibody Screen 07/09/19 02:15 RBC 4.42 MCV 91.2 MCHC 33.6 RDW 13.0 MPV 8.2 Neutrophils % 51.5 D Lymphocytes % 38.1 D Monocytes % 7.0 Eosinophils % 2.1 D Basophils % 1.3 D - RADIOLOGY Radiology Studies Ordered: Category Date Time Status CHEST CTA [CT] Stat CT Scan 07/09/19 02:01 Ordered CHEST X-RAY PORTABLE* [RAD] Stat Radiology 07/09/19 02:01 Taken - Medications Given in the ED: ED Medications Discontinued Medications Generic Name Dose Route Start Last Admin Trade Name Freq PRN Reason Stop Dose Admin Albuterol/Ipratropium 3 amp 07/09/19 02:03 07/09/19 02:13 Duoneb - NEB 07/09/19 02:04 3 amp ONCE ONE Administration Methylprednisolone Sodium Succinate 125 mg 07/09/19 02:03 07/09/19 02:46 Solu-Medrol - IVPUSH 07/09/19 02:04 125 mg ONCE ONE Administration Medical Decision Making - Medical Decision Making 07/09/19 04:25 Pt with h/o asthma p/w SOB and respiratory distress like their prior COPD exacerbation. Initial Vital Signs Temp Pulse Resp BP Pulse Ox 97.9 F 97 H 20 133/89 99 07/09/19 01:40 07/09/19 01:40 07/09/19 01:40 07/09/19 01:40 07/09/19 01:40 Exam: As noted in Physical Exam section. DDX IBNLT: asthma, COPD, bronchitis, PE, PNA, PTX, CHF, ACS, pericarditis, pneumonitis, etc. W/U ordered: Labs as noted below EKG CXR TX ordered: DuoNebs SoluMedrol EKG: Reviewed; results as noted in ECG Review section. CXR: No focal consolidation, RLL lobectomy postsurgical changes. Laboratory Tests 07/09/19 07/09/19 07/09/19 02:15 02:15 02:15 WBC 8.8 RBC 4.42 Hgb 13.5 Hct 40.3 MCV 91.2 MCH 30.7 MCHC 33.6 RDW 13.0 Plt Count 260 MPV 8.2 Absolute Neuts (auto) 4.5 Neutrophils % 51.5 D Lymphocytes % 38.1 D Monocytes % 7.0 Eosinophils % 2.1 D Basophils % 1.3 D Nucleated RBC % 0 PT with INR INR PTT (Actin FS) 38.5 H Sodium Potassium Chloride Carbon Dioxide Anion Gap BUN Creatinine Est GFR (CKD-EPI)AfAm Est GFR (CKD-EPI)NonAf Random Glucose Calcium Total Bilirubin AST ALT Alkaline Phosphatase Creatine Kinase 120 Troponin I < 0.02 B-Natriuretic Peptide Total Protein Albumin Blood Type Antibody Screen 07/09/19 07/09/19 07/09/19 02:15 02:15 02:15 WBC RBC Hgb Hct MCV MCH MCHC RDW Plt Count MPV Absolute Neuts (auto) Neutrophils % Lymphocytes % Monocytes % Eosinophils % Basophils % Nucleated RBC % PT with INR 11.80 INR 1.00 PTT (Actin FS) Sodium 140 Potassium 3.8 Chloride 106 Carbon Dioxide 29 Anion Gap 5 L BUN 11.5 Creatinine 0.8 Est GFR (CKD-EPI)AfAm 96.87 Est GFR (CKD-EPI)NonAf 83.58 Random Glucose 118 H Calcium 9.0 Total Bilirubin 0.2 AST 12 L ALT 20 Alkaline Phosphatase 134 H Creatine Kinase Troponin I B-Natriuretic Peptide 21.8 Total Protein 7.0 Albumin 3.8 Blood Type Antibody Screen 07/09/19 02:15 WBC RBC Hgb Hct MCV MCH MCHC RDW Plt Count MPV Absolute Neuts (auto) Neutrophils % Lymphocytes % Monocytes % Eosinophils % Basophils % Nucleated RBC % PT with INR INR PTT (Actin FS) Sodium Potassium Chloride Carbon Dioxide Anion Gap BUN Creatinine Est GFR (CKD-EPI)AfAm Est GFR (CKD-EPI)NonAf Random Glucose Calcium Total Bilirubin AST ALT Alkaline Phosphatase Creatine Kinase Troponin I B-Natriuretic Peptide Total Protein Albumin Blood Type O POSITIVE Antibody Screen Negative EXAM: CT ABDOMEN AND PELVIS WITH CONTRAST Partly calcified 5.8 cm left adrenal cyst or adenoma. No bowel obstruction or inflammation. No free air. Normal appendix. Unremarkable liver, spleen, stomach, pancreas, kidneys and gallbladder. 5 mm nodule LLL, probably inflammatory. Bicornuate uterus. 2.1 cm dominant follicle left ovary. 1.7 cm dominant follicle right ovary. Trace physiologic free fluid right adnexa. Vital Signs Temperature 97.9 F 07/09/19 01:40 Pulse Rate 83 07/09/19 04:35 Respiratory Rate 18 07/09/19 04:35 Blood Pressure 132/76 07/09/19 04:35 O2 Sat by Pulse Oximetry (%) 99 07/09/19 04:50 07/09/19 04:34 The Pt has gotten significant relief of symptoms while in the ED. Workup is not concerning for emergency-level pathology at this time. Pt states they have their normal asthma medications at home including nebs and MDI. Medrol DosePak sent E-Rx. The Pt is appropriate for discharge with close outpatient follow up. They are comfortable with this plan and will follow up with PCP in 1-3 days. Specific return precautions are discussed and they will come back to the ER if necessary. Discharge - Discharge Information Problems reviewed: Yes Clinical Impression/Diagnosis: Chest wall pain Asthma exacerbation Qualifiers: Asthma severity: unspecified severity Asthma persistence: unspecified Qualified Code(s): J45.901 - Unspecified asthma with (acute) exacerbation Condition: Stable Disposition: HOME - Admission No - Follow up/Referral Referrals: Douglas Booth MD [Primary Care Provider] - - Patient Discharge Instructions Additional Instructions: You were seen in the ER for asthma exacerbation. We did an exam, imaging studies , an electrocardiogram, a chest x-ray, and a chest CT to make sure there was no blood clot in the lungs. After our assessment, we do not believe you are having a medical emergency at this time, and we believe you are safe to go home. 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 Please follow up with your primary care provider in 1-3 days. Call their clinic , tell them you were seen in the ER, and tell them you need a follow-up. If you have any new or worsening symptoms, please come back to the ER at any time (24 hours a day). Especially come back to the ER if you have worsening shortness of breath that is unresponsive to your asthma treatments, lightheadedness, fainting , calf pain/swelling, or other new emergency symptoms. If you are having severe or life threatening symptoms, or symptoms that make it unsafe to drive or have someone drive you, please call 911. - Post Discharge Activity
[2019-07-09 04:36] VITALS: BP 132/76; PULSE 83
--- NOTE | 2019-07-09 11:14 | EKG ---
Test Reason : Blood Pressure : / mmHG Vent. Rate : 069 BPM Atrial Rate : 069 BPM P-R Int : 136 ms QRS Dur : 080 ms QT Int : 366 ms P-R-T Axes : 062 051 067 degrees QTc Int : 392 ms NORMAL SINUS RHYTHM NONSPECIFIC T WAVE ABNORMALITY ABNORMAL ECG WHEN COMPARED WITH ECG OF 04-MAR-2019 11:25, NO SIGNIFICANT CHANGE WAS FOUND Confirmed by SARAH LOPEZ MD ([id number]) on 07/09/2019 11:14:47 AM Referred By: Confirmed By:SARAH LOPEZ MD
== END 2019-07-09 05:32 | disposition home or self-care (01) ==
LOC: JER 01:18
PROC: 3E0F7GC Introduction of Other Therapeutic Substance into Respiratory Tract, Via Natural or Artificial Opening (ICD-10-PCS; principal; 2019-07-09)
PROC: 3E033GC Introduction of Other Therapeutic Substance into Peripheral Vein, Percutaneous Approach (ICD-10-PCS; 2019-07-09)
DX: R07.89 Other chest pain (principal); J45.901 Unspecified asthma with (acute) exacerbation
CPT/HCPCS: 36415; 71045-TC-FY; 71275-TC; 80053; 82550; 83880; 84484; 85025; 85610; 85730; 86850; 86900; 86901; 93005; 93010; 99283-25; Q9967

== ENCOUNTER 2020-10-06 04:31 | Day surgery (SDC) | payer OTHER ==
[2020-10-04 17:41] VITALS: BMI 30.4
[2020-10-06] MEDS ORDERED: POVIDONE-IODINE 5% OPHTHALMIC PREP 30 ML SOLUTION ONE (07:29)
[2020-10-06] MEDS ORDERED: LIDOCAINE HCL/PF 1% SDV 5ML VIAL ONE (07:29)
[2020-10-06] MEDS ORDERED: CHONDROITIN SU A/HYALUR SOD 1 KIT ONE (07:29)
[2020-10-06] MEDS ORDERED: ACETAMINOPHEN 325 MG TABLET (FP) PO PRN (08:26)
[2020-10-06] MEDS ORDERED: CYCLOPENTOLATE HCL 1% OPHTH SOLN 2 ML BOTTLE OP SCH (08:30)
[2020-10-06] MEDS ORDERED: OFLOXACIN 0.3% OPHTHALMIC SOLUTION 5 ML BOTTLE OP SCH (08:30)
[2020-10-06] MEDS ORDERED: KETOROLAC TROMETHAMINE 0.5% EYE DROP 1 DROP DROPS OP SCH (08:30)
[2020-10-06] MEDS ORDERED: TROPICAMIDE 1% OPHTH SOLN 15 ML BOTTLE OP SCH (08:30)
[2020-10-06] MEDS ORDERED: PROPOFOL 20 ML ONE (08:37)
[2020-10-06] MEDS ORDERED: MIDAZOLAM HCL 2 MG/2 ML SINGLE DOSE VIAL ONE (08:38)
[2020-10-06] MEDS: TROPICAMIDE 1% OPHTH SOLN 15 ML BOTTLE ONE ×3 (09:00→09:30)
[2020-10-06] MEDS: PHENYLEPHRINE 2.5% OPHTH SOLN 15 ML BOTTLE OP SCH ×3 (09:00→09:30)
[2020-10-06] MEDS: KETOROLAC TROMETHAMINE 0.5% EYE DROP 1 DROP DROPS ONE ×2 (09:00→09:30)
[2020-10-06] MEDS: CYCLOPENTOLATE HCL 1% OPHTH SOLN 2 ML BOTTLE ONE ×3 (09:00→09:30)
[2020-10-06] MEDS: OFLOXACIN 0.3% OPHTHALMIC SOLUTION 5 ML BOTTLE ONE ×3 (09:00→09:30)
[2020-10-06] MEDS ORDERED: BUPIVACAINE HCL/PF 0.75% 10 ML VIAL ONE (10:11)
[2020-10-06] MEDS ORDERED: LIDOCAINE HCL/PF 2% SDV 5ML VIAL ONE (10:13)
[2020-10-06] MEDS ORDERED: LIDOCAINE HCL/PF 2% SDV 5ML VIAL INF ONE (10:56)
[2020-10-06] MEDS ORDERED: BUPIVACAINE HCL/PF 0.75% 10 ML VIAL NR ONE (10:56)
[2020-10-06] MEDS ORDERED: POVIDONE-IODINE 5% OPHTHALMIC PREP 30 ML SOLUTION OS ONE (11:02)
[2020-10-06] MEDS ORDERED: CHONDROITIN SU A/HYALUR SOD 1 KIT IO ONE (11:06)
[2020-10-06] MEDS ORDERED: BSS (NA/CA/MG/K) BALANCED SALT SOLUTION OPHTH SOLN 15 ML BOTTLE OS ONE (11:06)
[2020-10-06] MEDS ORDERED: LIDOCAINE HCL 1% PRESERVATIVE FREE - 30ML VIAL IO ONE (11:06)
[2020-10-06] MEDS ORDERED: EPINEPHrine/PF 1 MG/1 ML (1:1,000) AMPULE SQ ONE (11:14)
[2020-10-06] MEDS ORDERED: ONDANSETRON 4 MG/2 ML VIAL IVPUSH PRN (11:50)
[2020-10-06] MEDS ORDERED: LACTATED RINGERS SOLUTION 1,000 ML IV SCH (12:00)
[2020-10-06 12:08] VITALS: TEMP 97.6
[2020-10-06 13:02] VITALS: BP 135/82; PULSE 66
== END 2020-10-06 12:45 | disposition home or self-care (01) ==
LOC: JASU-SURG 04:31
PROVIDERS: ATTEND Ophthalmology
PROC: 08RK3JZ Replacement of Left Lens with Synthetic Substitute, Percutaneous Approach (ICD-10-PCS; principal; 2020-10-06 11:00)
DX: H26.9 Unspecified cataract (principal); J45.909 Unspecified asthma, uncomplicated; E11.9 Type 2 diabetes mellitus without complications
CPT/HCPCS: 82962